=== PATIENT | female | born 1985 | race Caucasian/White ===

== ENCOUNTER 2016-08-28 17:46 | Emergency (ER) | payer OTHER ==
[2016-08-28] MEDS ORDERED: NORCO 5/325 MG PO ONE (19:19)
[2016-08-28] MEDS ORDERED: PHENERGAN 25 MG PO ONE (19:20)
[2016-08-28] MEDS ORDERED: PHENERGAN 25 MG ONE (19:24)
[2016-08-28] MEDS ORDERED: NORCO 5/325 MG ONE (19:26)
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
[2016-08-28 20:18] LABS: ALBUMIN 3.9 g/dL (3.4-5.0); ALKALINE PHOSPHATASE 83 U/L (46-116); ANION GAP 13.6 MEQ/L (5-15); BILIRUBIN,TOTAL 0.2 mg/dL (0.2-1.0); BLOOD UREA NITROGEN 8 mg/dL (9-20); CHLORIDE 107 mEq/L (98-107); Carbon Dioxide 21.4 mEq/L (21-32); Glucose 108 MG/DL (70-110); LIPASE 103 U/L (73-393); Potassium 3.6 mEq/L (3.5-5.1); SGOT/AST 33 U/L (15-37); SGPT/ALT 40 U/L (12-78); SODIUM 138 mEq/L (136-145); Total Protein 7.1 gm/dL (6.4-8.2)
[2016-08-28 20:19] LABS: BASOPHIL % 0.1 % (0.0-0.4); Eosinophil % 1.3 % (0.00-5.0); Granulocytes % 67.2 % (36.0-66.0); Lymphocytes % 24.4 % (24.0-44.0); Mean Cell Volume 89.6 fl (78-100); Mean Corpuscular Hemoglobin 29.4 pg (26-32); Mean Platelet Volume 10.6 fl (6-9.5); Platelet Count 260 K/mm3 (150-450); Red Blood Count 4.69 M/mm3 (4.1-5.4); Red Cell Distribution Width 13.6 % (11.5-14.0); White Blood Count 16.1 K/mm3 (4.0-10.5)
[2016-08-28 20:31] LABS: Collection Type CCMS
[2016-08-28 20:32] LABS: COMPLETE URINE MICROSCOPIC? NO
[2016-08-28 21:02] VITALS: BP 114/68; PULSE 69
[2016-08-28 21:18] VITALS: O2SAT 97
[2016-08-28] MEDS ORDERED: Cyclobenzaprine 10 MG PO ONE (21:20)
[2016-08-28] MEDS ORDERED: Cyclobenzaprine 10 MG ONE (21:24)
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
== END 2016-08-28 21:41 | disposition home or self-care (01) ==
LOC: ED 17:46
DX: R51 Headache (principal); S16.1XXA Strain of muscle, fascia and tendon at neck level, initial encounter; S60.222A Contusion of left hand, initial encounter; G40.909 Epilepsy, unspecified, not intractable, without status epilepticus; M54.2 Cervicalgia; M79.642 Pain in left hand; R11.0 Nausea; V53.5XXA Driver of pick-up truck or van injured in collision with car, pick-up truck or van in traffic accident, initial encounter; V57.5XXA Driver of pick-up truck or van injured in collision with fixed or stationary object in traffic accident, initial encounter
CPT/HCPCS: 36415; 70450; 72125; 73130; 80053; 80307; 81002; 82150; 83690; 84703; 85025; 99283; 99284; L0120; A9270-GY

== ENCOUNTER 2016-12-13 00:48 | Emergency (ER) | payer OTHER ==
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
[2016-12-13 01:06] VITALS: O2SAT 98
[2016-12-13 01:12] LABS: BASOPHIL % 0.2 % (0.0-0.4); Eosinophil % 2.3 % (0.00-5.0); Granulocytes % 56.1 % (36.0-66.0); Mean Corpuscular Hemoglobin 29.7 pg (26-32); Mean Platelet Volume 10.4 fl (6-9.5); Monocytes % 8.4 % (0.0-12.0); Platelet Count 243 K/mm3 (150-450); Red Blood Count 4.35 M/mm3 (4.1-5.4); Red Cell Distribution Width 13.6 % (11.5-14.0)
[2016-12-13 01:33] LABS: ANION GAP 11.6 MEQ/L (5-15); BLOOD UREA NITROGEN 11 mg/dL (9-20); CHLORIDE 110 mEq/L (98-107); Carbon Dioxide 22.1 mEq/L (21-32); Glucose 92 MG/DL (70-110); Potassium 3.6 mEq/L (3.5-5.1); SODIUM 140 mEq/L (136-145)
[2016-12-13] MEDS ORDERED: MOTRIN 600 MG PO ONE (01:45)
[2016-12-13] MEDS ORDERED: Ativan 2 MG/1 ML VIAL IM ONE (01:46)
[2016-12-13] MEDS ORDERED: Ativan 1 MG ONE (01:46)
[2016-12-13] MEDS ORDERED: MOTRIN 600 MG ONE (01:46)
[2016-12-13] MEDS ORDERED: Ativan 2 MG/1 ML VIAL ONE (01:48)
[2016-12-13 02:29] VITALS: BP 100/58; PULSE 72
== END 2016-12-13 02:28 | disposition home or self-care (01) ==
LOC: ED 00:48
DX: R56.9 Unspecified convulsions (principal); G40.909 Epilepsy, unspecified, not intractable, without status epilepticus
CPT/HCPCS: 36415; 80048; 82962; 84703; 85025; 96372; 99284; J2060; A9270-GY

== ENCOUNTER 2017-04-12 01:02 | Emergency (ER) | payer OTHER ==
[2017-04-12] MEDS ORDERED: Sodium Chloride 0.9% 1000 ML 1,000 ML IV STA (01:25)
[2017-04-12] MEDS ORDERED: Sodium Chloride 0.9% 1000 ML 1,000 ML ONE (01:38)
[2017-04-12 01:41] LABS: BASOPHIL % 0.3 % (0.0-0.4); Collection Type VOID; Eosinophil % 2.4 % (0.00-5.0); Granulocytes % 47.9 % (36.0-66.0); Lymphocytes % 39.1 % (24.0-44.0); Mean Cell Volume 89.9 fl (78-100); Mean Corpuscular Hemoglobin 29.6 pg (26-32); Mean Platelet Volume 9.7 fl (6-9.5); Monocytes % 10.3 % (0.0-12.0); Platelet Count 267 K/mm3 (150-450); Red Blood Count 4.25 M/mm3 (4.1-5.4); White Blood Count 11.5 K/mm3 (4.0-10.5)
[2017-04-12 01:42] LABS: ADD URINE CULTURE? NO (NO); Bilirubin NEGATIVE (NEGATIVE); Blood NEGATIVE Ery/ul (0-5); COMPLETE URINE MICROSCOPIC? NO; Glucose NEGATIVE (NEGATIVE); Leukocyte Esterase NEGATIVE (NEGATIVE)
[2017-04-12] MEDS ORDERED: TORAdol 30 mg Injection IV ONE (01:57)
[2017-04-12] MEDS ORDERED: BENADRYL 50 MG/ML IV ONE (01:57)
[2017-04-12] MEDS ORDERED: BENADRYL 50 MG/ML ONE (01:59)
[2017-04-12] MEDS ORDERED: TORAdol 30 mg Injection ONE (01:59)
[2017-04-12 02:00] LABS: ALBUMIN 3.2 g/dL (3.4-5.0); ALKALINE PHOSPHATASE 77 U/L (46-116); ANION GAP 17.2 MEQ/L (5-15); BLOOD UREA NITROGEN 14 mg/dL (9-20); CHLORIDE 107 mEq/L (98-107); Carbon Dioxide 22.7 mEq/L (21-32); Glucose 87 MG/DL (70-110); LIPASE 127 U/L (73-393); Potassium 3.6 mEq/L (3.5-5.1); SGOT/AST 15 U/L (15-37); SGPT/ALT 25 U/L (12-78); SODIUM 143 mEq/L (136-145); Total Protein 6.6 gm/dL (6.4-8.2)
[2017-04-12 02:01] LABS: Bacteria Rare; Clue Cells None Seen; Trichomonas None Seen; Yeast None Seen
[2017-04-12] MEDS ORDERED: Hydromorphone 1 mg/ml Ampule IV ONE (02:30)
[2017-04-12] MEDS ORDERED: Hydromorphone 1 mg/ml Ampule ONE (02:31)
--- NOTE | 2017-04-12 02:52 | ERPHSYRPT ---
- History of Present Illness Time Seen by Provider: 04/12/17 01:21 Source: patient Patient Subjective Stated Complaint: pt states pain started about 1 week ago. states pain will get better, then worse again. pt c/o pelvic pain worse on the right and lower back pain. Triage Nursing Assessment: pt alert and oriented, answers questions approp. pt ambulatory with steady gait noted. respirations nonlabored withlungs cta. bowel sounds present in all 4 quads. bilat lower ext strength wnl , cap refill and sensation wnl. Physician History: CC: right back and pelvic pain Hx: 31 y/o patient of Dr Fuentes with hx of seizure disorder. She has 2 week hx of right low back pain and right pelvic pain. Clear vaginal discharge. No fever or chills. Normal urination. She had prior BTL. Took neg preg test. Pain is sharp and moderate. Worse with intercourse. Timing/Duration: week(s) (2) Severity: moderate Allergies/Adverse Reactions: codeine [Codeine] Allergy (Verified 12/13/16 00:55) ITCHY, RASH morphine Allergy (Verified 12/13/16 00:55) Rash sulfamethoxazole [From Bactrim] Allergy (Verified 12/13/16 00:55) trimethoprim [From Bactrim] Allergy (Verified 12/13/16 00:55) cephalexin monohydrate [From Keflex] Adverse Reaction (Verified 12/13/16 00:55) Vomiting Cephalosporins Adverse Reaction (Verified 12/13/16 00:55) Vomiting Home Medications: Lamotrigine 100 mg [lamICTAL 100MG TABLET] 100 mg PO BID 09/23/12 [History ] Topiramate 100 mg [Topamax 100 MG] 300 mg PO HS 09/23/12 [History] Cyclobenzaprine HCl [Flexeril] 5 mg PO HS 04/12/17 [History] Divalproex Sodium [Depakote] 500 mg PO BID 04/12/17 [History] Hx Tetanus, Diphtheria Vaccination/Date Given: Yes (2015) Hx Influenza Vaccination/Date Given: No Hx Pneumococcal Vaccination/Date Given: No Immunizations Up to Date: Yes - Review of Systems Constitutional: No Fever, No Chills Eyes: No Symptoms Ears, Nose, & Throat: No Symptoms Respiratory: No Cough Cardiac: No Chest Pain Abdominal/Gastrointestinal: Abdominal Pain, No Nausea, No Vomiting, No Diarrhea Genitourinary Symptoms: Vaginal Discharge (clear), No Dysuria, No Musculoskeletal: Back Pain (right) Neurological: No Focal Weakness, No Parasthesia All Other Systems: Reviewed and Negative - Past Medical History Pertinent Past Medical History: Yes Neurological History: Epilepsy ENT History: No Pertinent History Cardiac History: No Pertinent History Respiratory History: No Pertinent History Endocrine Medical History: No Pertinent History Musculoskeletal History: No Pertinent History GI Medical History: No Pertinent History History: No Pertinent History Psycho-Social History: No Pertinent History Female Reproductive Disorders: No Pertinent History Other Medical History: kidney stones - Past Surgical History Past Surgical History: Yes Neuro Surgical History: No Pertinent History Cardiac: No Pertinent History Respiratory: No Pertinent History Gastrointestinal: No Pertinent History Genitourinary: No Pertinent History Musculoskeletal: Orthopedic Surgery Female Surgical History: Section, Tubal Ligation Other Surgical History: LEFT WRIST, T & A. - Social History Smoking Status: Current every day smoker How long have you smoked: 20 Exposure to second hand smoke: Yes Alcohol Use: None Drug Use: none Patient Lives Alone: No Significant Family History: no pertinent family hx - Female History Hx Last Menstrual Period: 02/21/17 Hx Now: No - Nursing Vital Signs Nursing Vital Signs: Initial Vital Signs Temperature 97.8 F 04/12/17 01:05 Pulse Rate 99 H 04/12/17 01:05 Respiratory Rate 20 04/12/17 01:05 Blood Pressure 125/77 04/12/17 01:05 O2 Sat by Pulse Oximetry 96 04/12/17 01:05 Pain Scale Pain Intensity [Lower Back] 8 Pain Intensity 7 - Physical Exam General Appearance: alert Eye Exam: PERRL/EOMI Ears, Nose, Throat Exam: normal ENT inspection, moist mucous membranes Neck Exam: normal inspection, non-tender, supple Respiratory Exam: normal breath sounds Cardiovascular Exam: regular rate/rhythm Gastrointestinal/Abdomen Exam: soft, No tenderness, No distention, No mass, No guarding Pelvic Exam: normal external exam, cervical motion tenderness, uterine tenderness, vaginal discharge (clear), No adnexal mass Back Exam: normal inspection Extremity Exam: normal inspection, normal range of motion Neurologic Exam: alert, oriented x 3, cooperative, marking stitcher II-XII nml as tested, sensation nml, No motor deficits Skin Exam: warm, dry, No rash SpO2 Interpretation: normal SpO2: 98 Oxygen Delivery: Room Air - Course Nursing assessment & vital signs reviewed: Yes - CT Exams abd/pelvis CT Interpretation: Tele-radiologist Report (3.4cm left ovarian cyst, nonobstructing 2.2 mm left renal calculi) Ordered Tests: Active Orders 24 hr Category Date Time Status IV Insertion STAT Care 04/12/17 01:25 Active Pelvic Exam Assist STAT Care 04/12/17 01:39 Active ABDOMEN AND PELVIS W/0 CONTRAS [CT] Stat Exams 04/12/17 01:58 Taken CBC W DIFF Stat Lab 04/12/17 01:36 Completed CMP Stat Lab 04/12/17 01:36 Completed HCG QUALITATIVE,SERUM Stat Lab 04/12/17 01:36 Completed LIPASE Stat Lab 04/12/17 01:36 Completed UA W/RFX UR CULTURE Stat Lab 04/12/17 01:36 Completed Wet Prep Stat Lab 04/12/17 01:54 Completed Medication Summary Discontinued Medications Generic Name Dose Route Start Last Admin Trade Name Joseq PRN Reason Stop Dose Admin Diphenhydramine HCl 25 mg 04/12/17 01:57 04/12/17 02:01 Benadryl 50 Mg/Ml IV 04/12/17 01:58 25 mg STAT ONE Administration Diphenhydramine HCl Confirm 04/12/17 01:59 Benadryl 50 Mg/Ml Administered 04/12/17 02:00 Dose 50 mg .ROUTE .STK-MED ONE Hydromorphone HCl 1 mg 04/12/17 02:30 04/12/17 02:33 Hydromorphone 1 Mg/Ml Ampule IV 04/12/17 02:31 1 mg STAT ONE Administration Hydromorphone HCl Confirm 04/12/17 02:31 Hydromorphone 1 Mg/Ml Ampule Administered 04/12/17 02:32 Dose 1 mg .ROUTE .STK-MED ONE Sodium Chloride 1,000 mls @ 999 mls/hr 04/12/17 01:25 04/12/17 01:52 Sodium Chloride 0.9% 1000 Ml IV 04/12/17 02:25 999 mls/hr .Q1H1M STA Administration Sodium Chloride Confirm 04/12/17 01:38 Sodium Chloride 0.9% 1000 Ml Administered 04/12/17 01:39 Dose 1,000 mls @ ud .ROUTE .[facility] ONE Ketorolac Tromethamine 30 mg 04/12/17 01:57 04/12/17 02:00 Toradol 30 Mg Injection IV 04/12/17 01:58 30 mg STAT ONE Administration Ketorolac Tromethamine Confirm 04/12/17 01:59 Toradol 30 Mg Injection Administered 04/12/17 02:00 Dose 30 mg .ROUTE .[facility] Lab/Rad Data: Laboratory Result Diagrams 04/12/17 01:36 04/12/17 01:36 Laboratory Results 04/12/17 04/12/17 04/12/17 Range/Units 01:54 01:36 01:36 WBC (4.0-10.5) K/mm3 RBC (4.1-5.4) M/mm3 Hgb (12.0-16.0) gm/dl Hct (35-47) % MCV (78-100) fl MCH (26-32) pg MCHC (32-36) g/dl RDW (11.5-14.0) % Plt Count (150-450) K/mm3 MPV (6-9.5) fl Gran % (36.0-66.0) % Lymphocytes % (24.0-44.0) % Monocytes % (0.0-12.0) % Eosinophils % (0.00-5.0) % Basophils % (0.0-0.4) % Basophils # (0-0.4) Sodium 143 (136-145) mEq/L Potassium 3.6 (3.5-5.1) mEq/L Chloride 107 (98-107) mEq/L Carbon Dioxide 22.7 (21-32) mEq/L Anion Gap 17.2 H (5-15) MEQ/L BUN 14 (9-20) mg/dL Creatinine 0.85 (0.55-1.30) mg/dl Estimated GFR > 60 ML/MIN Glucose 87 (70-110) MG/DL Calcium 8.7 (8.5-10.1) mg/dL Total Bilirubin 0.20 (0.2-1.0) mg/dL AST 15 (15-37) U/L ALT 25 (12-78) U/L Alkaline Phosphatase 77 (46-116) U/L Serum Total Protein 6.6 (6.4-8.2) gm/dL Albumin 3.2 L (3.4-5.0) g/dL Lipase 127 (73-393) U/L Serum , Qual NEGATIVE (Negative) Ur Collection Type Urine Color (YELLOW) Urine Appearance (CLEAR) Urine pH (5-6) Ur Specific Viola (1.005-1.025) Urine Protein (Negative) Urine Ketones (NEGATIVE) Urine Blood (0-5) Carlos/ul Urine Nitrite (NEGATIVE) Urine Bilirubin (NEGATIVE) Urine Urobilinogen (0-1) mg/dL Ur Leukocyte Esterase (NEGATIVE) Urine Culture Reflexed (NO) Urine Glucose (NEGATIVE) mg/dL WBC (Wet Prep) Few RBC (Wet Prep) Rare Epi Cells (Wet Prep) Rare Bacteria (Wet Prep) Rare Clue Cells (Wet Prep) None Seen Trichomonas (Wet Prep) None Seen Budding Yeast (Wet Prp) None Seen Specimen Received 04/12/17 04/12/17 Range/Units 01:36 01:36 WBC 11.5 H (4.0-10.5) K/mm3 RBC 4.25 (4.1-5.4) M/mm3 Hgb 12.6 (12.0-16.0) gm/dl Hct 38.2 (35-47) % MCV 89.9 (78-100) fl MCH 29.6 (26-32) pg MCHC 33.0 (32-36) g/dl RDW 14.0 (11.5-14.0) % Plt Count 267 (150-450) K/mm3 MPV 9.7 H (6-9.5) fl Gran % 47.9 (36.0-66.0) % Lymphocytes % 39.1 (24.0-44.0) % Monocytes % 10.3 (0.0-12.0) % Eosinophils % 2.4 (0.00-5.0) % Basophils % 0.3 (0.0-0.4) % Basophils # 0.03 (0-0.4) Sodium (136-145) mEq/L Potassium (3.5-5.1) mEq/L Chloride (98-107) mEq/L Carbon Dioxide (21-32) mEq/L Anion Gap (5-15) MEQ/L BUN (9-20) mg/dL Creatinine (0.55-1.30) mg/dl Estimated GFR ML/MIN Glucose (70-110) MG/DL Calcium (8.5-10.1) mg/dL Total Bilirubin (0.2-1.0) mg/dL AST (15-37) U/L ALT (12-78) U/L Alkaline Phosphatase (46-116) U/L Serum Total Protein (6.4-8.2) gm/dL Albumin (3.4-5.0) g/dL Lipase (73-393) U/L Serum , Qual (Negative) Ur Collection Type VOID Urine Color YELLOW (YELLOW) Urine Appearance CLEAR (CLEAR) Urine pH 7.0 (5-6) Ur Specific Viola 1.015 (1.005-1.025) Urine Protein NEGATIVE (Negative) Urine Ketones NEGATIVE (NEGATIVE) Urine Blood NEGATIVE (0-5) Carlos/ul Urine Nitrite NEGATIVE (NEGATIVE) Urine Bilirubin NEGATIVE (NEGATIVE) Urine Urobilinogen NORMAL (0-1) mg/dL Ur Leukocyte Esterase NEGATIVE (NEGATIVE) Urine Culture Reflexed NO (NO) Urine Glucose NEGATIVE (NEGATIVE) mg/dL WBC (Wet Prep) RBC (Wet Prep) Epi Cells (Wet Prep) Bacteria (Wet Prep) Clue Cells (Wet Prep) Trichomonas (Wet Prep) Budding Yeast (Wet Prp) Specimen Received 04/12/17 0140 - Progress Progress Note: 04/12/17 02:52 GC/CT pending. She has ovarian cyst. Dionley the cause of pain. Will Rx pain. Advised follow up with Dr Fuentes. Counseled pt/family regarding: lab results, diagnosis, need for follow-up, rad results - Departure Time of Disposition: 02:55 Departure Disposition: Home Clinical Impression: Pelvic pain, Ovarian cyst Condition: Stable Critical Care Time: No Referrals: TORI FUENTES [Primary Care Provider] - Instructions: Pelvic Pain, Ovarian Cyst Additional Instructions: ABDOMINAL PAIN 1. There are several different causes for abdominal pain, some of which may not be able to be identified on initial examination. 2. The important thing to remember is that bodily functions can change in a short period of time. If you notice any of the following symptoms, return to the emergency department or consult your doctor immediately: A. Worsening pain or no improvement in the next 12 hours. B. Increasing, severe abdominal pain C. Blood in stool D. Black stools E. Persistent vomiting F. Fever or chills or other symptoms Follow up next week with Dr Fuentes. Rx naproxen. Rx norco. Prescriptions: Hydrocodone Bit/Acetaminophen [Morton 5-325 Tablet] 1 each PO Q6H PRN PRN #10 tablet PRN Reason: Pain Naproxen 500 mg [Naprosyn 500 MG] 500 mg PO BID #14 tablet
[2017-04-12 03:11] VITALS: BP 126/85; PULSE 88; O2SAT 126
[2017-04-12 03:27] LABS: CHLAMYDIA DNA NEGATIVE
--- NOTE | 2017-04-12 07:56 | XRAY ---
Indication: Right lower back and pelvic pain for one week. History kidney stones. Multiple contiguous axial images obtained through the abdomen and pelvis without contrast using renal stone protocol. Comparison: December 05, 2012. Lung bases demonstrates mild bibasilar atelectasis/scarring. Heart is not enlarged. There are 2 nonobstructing left renal microcalculi, largest measuring 2 mm. No other renal calculus or evidence for obstructive uropathy. Left ovary demonstrates 2 cysts, largest measuring 3.5 cm. Right ovary demonstrates a 2 cm cyst. No free fluid/air. Normal appendix. Noncontrasted stomach and bowel loops appear nonobstructed. Mild diffuse scattered colonic fecal debris. Gallbladder partially contracted without gallstones. Remaining liver, pancreas, spleen, adrenal glands, kidneys, ureters, bladder, uterus, and aorta appear unremarkable for noncontrast exam. Osseous structures intact. Impression: 1. New nonobstructing left renal microcalculi. 2. Bilateral ovary cysts, largest on the left. 3. Mild fecal stasis without obstruction. Comment: Preliminary interpretation was made by C. No discrepancy. CTDI 28.08
== END 2017-04-12 03:05 | disposition home or self-care (01) ==
LOC: ED 01:02
DX: R10.2 Pelvic and perineal pain (principal); N83.202 Unspecified ovarian cyst, left side
CPT/HCPCS: 36000; 36415; 74176; 80053; 81002; 83690; 84703; 85025; 87210; 87490; 87590; 96360; 96374; 96375; 99284; J1170; J1200; J1885

== ENCOUNTER 2017-05-16 23:06 | Emergency (ER) | payer OTHER ==
[2017-05-16] MEDS ORDERED: Sodium Chloride 0.9% 1000 ML 1,000 ML IV STA (23:23)
[2017-05-16] MEDS ORDERED: Sodium Chloride 0.9% 1000 ML 1,000 ML ONE (23:29)
[2017-05-16 23:34] LABS: BASOPHIL % 0.2 % (0.0-0.4); Basophil (Absolute #) 0.03 (0-0.4); Eosinophil % 1.5 % (0.00-5.0); Eosinophil (Absolute #) 0.23 (0-0.5); Granulocyte Absolute (ANC) 9.89 (1.4-6.9); Granulocytes % 64.1 % (36.0-66.0); Hematocrit 41.7 % (35-47); Hemoglobin 13.7 gm/dl (12.0-16.0); Lymphocyte (Absolute #) 4.16 (1.0-4.6); Lymphocytes % 26.9 % (24.0-44.0); Mean Cell Volume 90.3 fl (78-100); Mean Corpuscular Hemoglobin 29.7 pg (26-32); Mean Corpuscular Hgb Concent. 32.9 g/dl (32-36); Mean Platelet Volume 9.5 fl (6-9.5); Monocyte (Absolute #) 1.13 (0.0-1.3); Monocytes % 7.3 % (0.0-12.0); Platelet Count 301 K/mm3 (150-450); Red Blood Count 4.62 M/mm3 (4.1-5.4); Red Cell Distribution Width 13.4 % (11.5-14.0); White Blood Count 15.4 K/mm3 (4.0-10.5)
--- NOTE | 2017-05-16 23:36 | ERPHSYRPT ---
- History of Present Illness Time Seen by Provider: 05/16/17 23:31 Source: family Exam Limitations: no limitations Patient Subjective Stated Complaint: "Seizure" Triage Nursing Assessment: Boyfriend at the bedside states pt has been having "seizure" activity today, hx of epilepsy. Pt had "seizure" upon arrival to room , by closed eyes and would not respond to staff. Vital signs remained same as prior to episode, no shaking or rigidity noted. Pt crying in room, appears anxious, no distress noted. Physician History: Boyfriend at the bedside states pt has been having "seizure" activity today, hx of epilepsy. Pt had "seizure" upon arrival to room, by closed eyes and would not respond to staff. denies any jerky movements, patient is on seizure medications Time of Onset/Last Time Seen Normal: Boyfriend at the bedside states pt has been having "seizure" activity today Timing/Duration: today Character of Deficits: none Baseline/Normal Cognition: alert oriented x 3 Current Cognition: alert but confused Associated Symptoms: confusion Allergies/Adverse Reactions: codeine [Codeine] Allergy (Verified 12/13/16 00:55) ITCHY, RASH morphine Allergy (Verified 12/13/16 00:55) Rash sulfamethoxazole [From Bactrim] Allergy (Verified 12/13/16 00:55) trimethoprim [From Bactrim] Allergy (Verified 12/13/16 00:55) cephalexin monohydrate [From Keflex] Adverse Reaction (Verified 12/13/16 00:55) Vomiting Cephalosporins Adverse Reaction (Verified 12/13/16 00:55) Vomiting Home Medications: Lamotrigine 100 mg [lamICTAL 100MG TABLET] 100 mg PO BID 09/23/12 [History ] Topiramate 100 mg [Topamax 100 MG] 300 mg PO HS 09/23/12 [History] Cyclobenzaprine HCl [Flexeril] 5 mg PO HS 04/12/17 [History] Divalproex Sodium [Depakote] 500 mg PO BID 04/12/17 [History] Hx Tetanus, Diphtheria Vaccination/Date Given: Yes Hx Influenza Vaccination/Date Given: No Hx Pneumococcal Vaccination/Date Given: No Immunizations Up to Date: No - Review of Systems Constitutional: No Fever, No Chills Eyes: No Symptoms Ears, Nose, & Throat: No Symptoms Respiratory: No Cough, No Dyspnea Cardiac: No Chest Pain, No Edema, No Syncope Abdominal/Gastrointestinal: No Abdominal Pain, No Nausea, No Vomiting, No Diarrhea Genitourinary Symptoms: No Dysuria Musculoskeletal: No Back Pain, No Neck Pain Skin: No Rash Neurological: Headache, Seizure, No Dizziness, No Focal Weakness, No Sensory Changes Psychological: No Symptoms Endocrine: No Symptoms All Other Systems: Reviewed and Negative - Past Medical History Pertinent Past Medical History: Yes Neurological History: Epilepsy ENT History: No Pertinent History Cardiac History: No Pertinent History Respiratory History: No Pertinent History Endocrine Medical History: No Pertinent History Musculoskeletal History: No Pertinent History GI Medical History: No Pertinent History History: No Pertinent History Psycho-Social History: No Pertinent History Female Reproductive Disorders: No Pertinent History Other Medical History: kidney stones - Past Surgical History Past Surgical History: Yes Neuro Surgical History: No Pertinent History Cardiac: No Pertinent History Respiratory: No Pertinent History Gastrointestinal: No Pertinent History Genitourinary: No Pertinent History Musculoskeletal: Orthopedic Surgery Female Surgical History: Section, Tubal Ligation Other Surgical History: LEFT WRIST, T & A. - Social History Smoking Status: Current every day smoker How long have you smoked: 10 years Exposure to second hand smoke: Yes Alcohol Use: None Drug Use: none Patient Lives Alone: No Significant Family History: no pertinent family hx - Female History Hx Last Menstrual Period: 02/21/2017 Hx Now: No - Nursing Vital Signs Nursing Vital Signs: Initial Vital Signs Temperature 98.1 F 05/16/17 23:15 Pulse Rate 97 H 05/16/17 23:15 Respiratory Rate 18 05/16/17 23:15 Blood Pressure 136/104 05/16/17 23:15 O2 Sat by Pulse Oximetry 98 05/16/17 23:15 Pain Scale Pain Intensity 6 - Ryan Coma Scale Best Eye Response (Ryan): (4) open spontaneously Best Verbal Response ([place]): (5) oriented Best Motor Response (Ryan): (6) obeys commands [place] Total: 15 - Physical Exam General Appearance: no apparent distress, alert Eye Exam: bilateral eye: PERRL, EOMI Ears, Nose, Throat Exam: normal ENT inspection, moist mucous membranes Neck Exam: normal inspection, non-tender, supple Respiratory: normal breath sounds, lungs clear, airway intact, No respiratory distress Cardiovascular: regular rate/rhythm, No edema Gastrointestinal: soft, No tenderness, No distention Back Exam: normal inspection Extremity Exam: normal inspection, No pedal edema Mental Status: alert, lethargy bar staff Exam: normal speech, PERRL, tongue midline Motor/Sensory: no motor deficit Skin Exam: normal color, warm, dry, No rash SpO2 Interpretation: normal SpO2: 98 Oxygen Delivery: Room Air - CT Exams Head CT Interpretation: Tele-radiologist Report, No/Intracranial Hemorrhag Ordered Tests: Active Orders 24 hr Category Date Time Status HEAD WITHOUT CONTRAST [CT] Stat Exams 05/16/17 23:24 Taken CBC W DIFF Stat Lab 05/16/17 23:25 Completed CMP Stat Lab 05/16/17 23:25 Completed HCG QUALITATIVE,SERUM Stat Lab 05/16/17 23:25 Completed Lactic Acid Stat Lab 05/16/17 23:23 Ordered UA W/RFX UR CULTURE Stat Lab 05/16/17 23:23 Ordered Urine Triage Profile Stat Lab 05/16/17 23:23 Completed Medication Summary Discontinued Medications Generic Name Dose Route Start Last Admin Trade Name Maikol PRN Reason Stop Dose Admin Sodium Chloride 1,000 mls @ 999 mls/hr 05/16/17 23:23 05/16/17 23:30 Sodium Chloride 0.9% 1000 Ml IV 05/17/17 00:23 999 mls/hr .Q1H1M STA Administration Sodium Chloride Confirm 05/16/17 23:29 Sodium Chloride 0.9% 1000 Ml Administered 05/16/17 23:30 Dose 1,000 mls @ ud .ROUTE .STK-MED ONE Lab/Rad Data: Laboratory Result Diagrams 05/16/17 23:25 05/16/17 23:25 Laboratory Results 05/16/17 05/16/17 05/16/17 Range/Units 23:25 23:25 23:25 WBC 15.4 H (4.0-10.5) K/mm3 RBC 4.62 (4.1-5.4) M/mm3 Hgb 13.7 (12.0-16.0) gm/dl Hct 41.7 (35-47) % MCV 90.3 (78-100) fl MCH 29.7 (26-32) pg MCHC 32.9 (32-36) g/dl RDW 13.4 (11.5-14.0) % Plt Count 301 (150-450) K/mm3 MPV 9.5 (6-9.5) fl Gran % 64.1 (36.0-66.0) % Lymphocytes % 26.9 (24.0-44.0) % Monocytes % 7.3 (0.0-12.0) % Eosinophils % 1.5 (0.00-5.0) % Basophils % 0.2 (0.0-0.4) % Basophils # 0.03 (0-0.4) Sodium 141 (136-145) mEq/L Potassium 4.2 (3.5-5.1) mEq/L Chloride 107 (98-107) mEq/L Carbon Dioxide 21.4 (21-32) mEq/L Anion Gap 16.3 H (5-15) MEQ/L BUN 7 L (9-20) mg/dL Creatinine 0.82 (0.55-1.30) mg/dl Estimated GFR > 60 ML/MIN Glucose 91 (70-110) MG/DL Calcium 8.5 (8.5-10.1) mg/dL Total Bilirubin 0.20 (0.2-1.0) mg/dL AST 19 (15-37) U/L ALT 20 (12-78) U/L Alkaline Phosphatase 82 (46-116) U/L Serum Total Protein 6.8 (6.4-8.2) gm/dL Albumin 3.5 (3.4-5.0) g/dL Serum , Qual NEGATIVE (Negative) Urine Opiates Level (NEGATIVE) Ur Methadone (NEGATIVE) Urine Barbiturates (NEGATIVE) Ur Phencyclidine (PCP) (NEGATIVE) Urine Amphetamine (NEGATIVE) U Benzodiazepine Level (NEGATIVE) Urine Cocaine (NEGATIVE) Urine Marijuana (THC) (NEGATIVE) 05/16/17 Range/Units 23:23 WBC (4.0-10.5) K/mm3 RBC (4.1-5.4) M/mm3 Hgb (12.0-16.0) gm/dl Hct (35-47) % MCV (78-100) fl MCH (26-32) pg MCHC (32-36) g/dl RDW (11.5-14.0) % Plt Count (150-450) K/mm3 MPV (6-9.5) fl Gran % (36.0-66.0) % Lymphocytes % (24.0-44.0) % Monocytes % (0.0-12.0) % Eosinophils % (0.00-5.0) % Basophils % (0.0-0.4) % Basophils # (0-0.4) Sodium (136-145) mEq/L Potassium (3.5-5.1) mEq/L Chloride (98-107) mEq/L Carbon Dioxide (21-32) mEq/L Anion Gap (5-15) MEQ/L BUN (9-20) mg/dL Creatinine (0.55-1.30) mg/dl Estimated GFR ML/MIN Glucose (70-110) MG/DL Calcium (8.5-10.1) mg/dL Total Bilirubin (0.2-1.0) mg/dL AST (15-37) U/L ALT (12-78) U/L Alkaline Phosphatase (46-116) U/L Serum Total Protein (6.4-8.2) gm/dL Albumin (3.4-5.0) g/dL Serum , Qual (Negative) Urine Opiates Level NEG. (NEGATIVE) Ur Methadone NEG. (NEGATIVE) Urine Barbiturates NEG. (NEGATIVE) Ur Phencyclidine (PCP) NEG. (NEGATIVE) Urine Amphetamine NEG. (NEGATIVE) U Benzodiazepine Level NEG. (NEGATIVE) Urine Cocaine NEG. (NEGATIVE) Urine Marijuana (THC) NEG. (NEGATIVE) - Progress Progress: improved Counseled pt/family regarding: lab results, diagnosis, need for follow-up, rad results - Departure Time of Disposition: 00:40 Departure Disposition: Home Clinical Impression: Seizure Qualifiers: Convulsion type: unspecified Qualified Code(s): R56.9 - Unspecified convulsions Condition: Stable Critical Care Time: Yes Critical Care Time(excluding separately billable procedures): 30-74 minutes Referrals: TORI SOUTH [Primary Care Provider] - Instructions: Seizure Disorder -- Adult Additional Instructions: increase lamictal 150 mg orally twice a day Please follow the instructions given to you. Please take your medication as prescribed if given. If symptoms recur or get worse, come back to the emergency room if you cannot reach your primary care physician, or call your primary care physician for an appointment. Again if your symptoms get worse, come back to the emergency room. Thanks for visiting emergency room, and let us take care of you.
[2017-05-16 23:59] LABS: ALBUMIN 3.5 g/dL (3.4-5.0); ALKALINE PHOSPHATASE 82 U/L (46-116); ANION GAP 16.3 MEQ/L (5-15); BLOOD UREA NITROGEN 7 mg/dL (9-20); CHLORIDE 107 mEq/L (98-107); Calcium 8.5 mg/dL (8.5-10.1); Carbon Dioxide 21.4 mEq/L (21-32); Creatinine 1 0.82 mg/dl (0.55-1.30); EST GLOMERULAR FILTRATION RATE > 60 ML/MIN; Glucose 91 MG/DL (70-110); Potassium 4.2 mEq/L (3.5-5.1); SGOT/AST 19 U/L (15-37); SGPT/ALT 20 U/L (12-78); SODIUM 141 mEq/L (136-145); Total Protein 6.8 gm/dL (6.4-8.2)
[2017-05-17 00:09] LABS: Amphetamine,Urine NEG. (NEGATIVE); Barbiturate,Urine NEG. (NEGATIVE); Benzodiazepine,Urine NEG. (NEGATIVE); Cocaine,Urine NEG. (NEGATIVE); Methadone,Urine NEG. (NEGATIVE); Opiate,Urine NEG. (NEGATIVE); PCP,Urine NEG. (NEGATIVE); THC,Urine NEG. (NEGATIVE)
[2017-05-17 00:48] VITALS: BP 127/78; PULSE 84; O2SAT 97
[2017-05-17 01:14] LABS: Appearance CLEAR (CLEAR)
[2017-05-17 01:15] LABS: Bilirubin NEGATIVE (NEGATIVE); Blood NEGATIVE Ery/ul (0-5); Glucose NEGATIVE (NEGATIVE); Ketones NEGATIVE (NEGATIVE); Leukocyte Esterase NEGATIVE (NEGATIVE); Nitrite NEGATIVE (NEGATIVE); Protein,Urine Dip NEGATIVE (Negative); Urobilinogen NORMAL mg/dL (0-1)
--- NOTE | 2017-05-17 10:36 | XRAY ---
Indication: Seizure. Multiple contiguous axial images obtained through the head without contrast. Comparison: August 28, 2016. Again normal appearing brain parenchyma, ventricles, and bony calvarium. Visualized paranasal sinuses and mastoid air cells are clear. Impression: Stable normal CT head without contrast exam. Comment: Preliminary interpretation was made by [facility]. No discrepancy. CTDI 70.00
== END 2017-05-17 01:12 | disposition home or self-care (01) ==
LOC: ED 23:06
DX: R56.9 Unspecified convulsions (principal)
CPT/HCPCS: 36000; 36415; 70450; 80053; 80307; 81002; 84146; 84703; 85025; 96360; 99284

== ENCOUNTER 2017-06-25 19:06 | Emergency (ER) | payer OTHER ==
[2017-06-25] MEDS ORDERED: NORCO 5/325 MG PO ONE (20:29)
[2017-06-25] MEDS ORDERED: Sodium Chloride 0.9% 1000 ML 1,000 ML IV SCH (20:30)
--- NOTE | 2017-06-25 20:33 | ERPHSYRPT ---
- History of Present Illness Time Seen by Provider: 06/25/17 20:24 Source: patient Exam Limitations: no limitations Patient Subjective Stated Complaint: Seizure Activity Triage Nursing Assessment: Pt presents to the ED with complaints of seizure activity prior to arrival. Pt states she is about to begin menstrual cycle and that she normally has seizure activity just prior to menstrual cycle. No distress noted, skin PWD. Pt and family unable to described seizure activity. Physician History: 31-year-old white female with history of epilepsy, kidney stones, patient states she often gets seizures prior to her menstrual period, Patient brought in by her boyfriend with complaint of multiple seizures up to 30 and 1 hour just prior to arrival. Boyfriend is unable to describe the seizures he does state the past that she's, later head back and her arms have shaken in the past. Patient currently alert oriented in no acute distress. Past medical history includes epilepsy, kidney stones. Past surgical history includes , tubal ligation, orthopedic surgery left wrist, tonsillectomy and adenoidectomy. Social history positive for tobacco use. Timing/Duration: today (at about 5:30 lasting one hour.) Severity: moderate Modifying Factors: Improves With: nothing Associated Symptoms: seizure, No nausea, No vomiting, No abdominal pain, No shortness of breath, No heartburn, No diaphoresis, No cough, No chills, No chest pain, No fever, No headaches, No loss of appetite, No malaise, No rash, No syncope Allergies/Adverse Reactions: codeine [Codeine] Allergy (Verified 06/25/17 21:27) ITCHY, RASH morphine Allergy (Verified 06/25/17 21:27) Rash sulfamethoxazole [From Bactrim] Allergy (Verified 06/25/17 21:27) trimethoprim [From Bactrim] Allergy (Verified 06/25/17 21:27) cephalexin monohydrate [From Keflex] Adverse Reaction (Verified 06/25/17 21:27) Vomiting Cephalosporins Adverse Reaction (Verified 06/25/17 21:27) Vomiting Home Medications: Lamotrigine 100 mg [lamICTAL 100MG TABLET] 100 mg PO BID 09/23/12 [History ] Topiramate 100 mg [Topamax 100 MG] 300 mg PO HS 09/23/12 [History] Cyclobenzaprine HCl [Flexeril] 5 mg PO HS 04/12/17 [History] Divalproex Sodium [Depakote] 500 mg PO BID 04/12/17 [History] Naproxen 500 mg [Naprosyn 500 MG] 500 mg PO BID PRN 06/25/17 [History] Omeprazole 20 MG [Prilosec 20 mg] 20 mg PO DAILY 06/25/17 [History] Hx Tetanus, Diphtheria Vaccination/Date Given: Yes Hx Influenza Vaccination/Date Given: No Hx Pneumococcal Vaccination/Date Given: No Immunizations Up to Date: No - Review of Systems Constitutional: No Fever, No Chills Eyes: No Symptoms Ears, Nose, & Throat: No Symptoms Respiratory: No Cough, No Dyspnea Cardiac: No Chest Pain, No Edema, No Syncope Abdominal/Gastrointestinal: No Abdominal Pain, No Nausea, No Vomiting, No Diarrhea Genitourinary Symptoms: No Dysuria Musculoskeletal: No Back Pain, No Neck Pain Skin: No Rash Neurological: Headache, Seizure, No Dizziness, No Focal Weakness, No Gait Changes, No Irritability, No Lethargy, No Paralysis, No Parasthesia, No Sensory Changes, No Speech Changes, No Tics, No Tremors, No Vertigo Psychological: No Symptoms Endocrine: No Symptoms All Other Systems: Reviewed and Negative - Past Medical History Pertinent Past Medical History: Yes Neurological History: Epilepsy ENT History: No Pertinent History Cardiac History: No Pertinent History Respiratory History: No Pertinent History Endocrine Medical History: No Pertinent History Musculoskeletal History: No Pertinent History GI Medical History: No Pertinent History History: No Pertinent History Psycho-Social History: No Pertinent History Female Reproductive Disorders: No Pertinent History Other Medical History: kidney stones - Past Surgical History Past Surgical History: Yes Neuro Surgical History: No Pertinent History Cardiac: No Pertinent History Respiratory: No Pertinent History Gastrointestinal: No Pertinent History Genitourinary: No Pertinent History Musculoskeletal: Orthopedic Surgery Female Surgical History: Section, Tubal Ligation Other Surgical History: LEFT WRIST, T & A. - Social History Smoking Status: Current every day smoker How long have you smoked: 14 years Exposure to second hand smoke: Yes Alcohol Use: None Drug Use: none Patient Lives Alone: No Significant Family History: no pertinent family hx - Female History Hx Last Menstrual Period: 05/26/2017 Hx Now: No - Nursing Vital Signs Nursing Vital Signs: Initial Vital Signs Temperature 98.4 F 06/25/17 19:33 Pulse Rate 78 06/25/17 19:33 Respiratory Rate 16 06/25/17 19:33 Blood Pressure 112/66 06/25/17 19:33 O2 Sat by Pulse Oximetry 96 06/25/17 19:33 Pain Scale Pain Intensity 5 - Physical Exam General Appearance: no apparent distress, alert Eye Exam: PERRL/EOMI, eyes nml inspection Ears, Nose, Throat Exam: normal ENT inspection, TMs normal, pharynx normal, moist mucous membranes Neck Exam: normal inspection, non-tender, supple, full range of motion Respiratory Exam: normal breath sounds, lungs clear, No respiratory distress Cardiovascular Exam: regular rate/rhythm, normal heart sounds, normal peripheral pulses Gastrointestinal/Abdomen Exam: soft, normal bowel sounds, No tenderness, No mass Back Exam: normal inspection, normal range of motion, No CVA tenderness, No vertebral tenderness Extremity Exam: normal inspection, normal range of motion, pelvis stable Neurologic Exam: alert, oriented x 3, cooperative, normal mood/affect, nml cerebellar function, nml station & gait, sensation nml, No motor deficits Skin Exam: normal color, warm, dry, No rash Lymphatic Exam: No adenopathy SpO2 Interpretation: normal (96%) SpO2: 96 Oxygen Delivery: Room Air Ordered Tests: Active Orders 24 hr Category Date Time Status Accucheck STAT Care 06/25/17 20:27 Active IV Insertion STAT Care 06/25/17 20:27 Active CBC W DIFF Stat Lab 06/25/17 20:41 Completed CMP Stat Lab 06/25/17 20:41 Completed HCG QUALITATIVE,SERUM Stat Lab 06/25/17 20:41 Completed UA W/RFX UR CULTURE Stat Lab 06/25/17 20:55 Completed Urine Triage Profile Stat Lab 06/25/17 20:55 Completed VALPROIC ACID (DE[place]KOTE) Stat Lab 06/25/17 20:41 Completed Medication Summary Generic Name Dose Route Start Last Admin Trade Name Freq PRN Reason Stop Dose Admin Sodium Chloride 1,000 mls @ 100 mls/hr 06/25/17 20:30 06/25/17 20:42 Sodium Chloride 0.9% 1000 Ml IV 07/25/17 20:29 100 mls/hr .Q10H ANEUDY Administration Discontinued Medications Generic Name Dose Route Start Last Admin Trade Name Freq PRN Reason Stop Dose Admin Hydrocodone Bitart/Acetaminophen 1 tab 06/25/17 20:29 06/25/17 20:41 [place] 5/325 Mg PO 06/25/17 20:30 1 tab STAT ONE Administration Hydrocodone Bitart/Acetaminophen Confirm 06/25/17 20:41 [place] 5/325 Mg Administered 06/25/17 20:42 Dose 1 tab .ROUTE .STK-MED ONE Divalproex Sodium 500 mg 06/25/17 21:40 06/25/17 22:[address] 250 Mg Tab PO 06/25/17 21:41 500 mg STAT ONE Administration Lorazepam 1 mg 06/25/17 21:37 06/25/17 21:54 Ativan 2 Mg/1 Ml Vial IV 06/25/17 21:38 1 mg STAT ONE Administration Lorazepam Confirm 06/25/17 21:52 Ativan 2 Mg/1 Ml Vial Administered 06/25/17 21:53 Dose 2 mg .ROUTE .STK-MED ONE Lab/Rad Data: Laboratory Result Diagrams 06/25/17 20:41 06/25/17 20:41 Laboratory Results 06/25/17 06/25/17 06/25/17 Range/Units 20:55 20:55 20:41 WBC (4.0-10.5) K/mm3 RBC (4.1-5.4) M/mm3 Hgb (12.0-16.0) gm/dl Hct (35-47) % MCV (78-100) fl MCH (26-32) pg MCHC (32-36) g/dl RDW (11.5-14.0) % Plt Count (150-450) K/mm3 MPV (6-9.5) fl Gran % (36.0-66.0) % Lymphocytes % (24.0-44.0) % Monocytes % (0.0-12.0) % Eosinophils % (0.00-5.0) % Basophils % (0.0-0.4) % Basophils # (0-0.4) Sodium (136-145) mEq/L Potassium (3.5-5.1) mEq/L Chloride (98-107) mEq/L Carbon Dioxide (21-32) mEq/L Anion Gap (5-15) MEQ/L BUN (9-20) mg/dL Creatinine (0.55-1.30) mg/dl Estimated GFR ML/MIN Glucose (70-110) MG/DL Calcium (8.5-10.1) mg/dL Total Bilirubin (0.2-1.0) mg/dL AST (15-37) U/L ALT (12-78) U/L Alkaline Phosphatase (46-116) U/L Serum Total Protein (6.4-8.2) gm/dL Albumin (3.4-5.0) g/dL Serum , Qual NEGATIVE (Negative) Ur Collection Type VOID Urine Color YELLOW (YELLOW) Urine Appearance CLOUDY (CLEAR) Urine pH 7.0 (5-6) Ur Specific [place] 1.015 (1.005-1.025) Urine Protein NEGATIVE (Negative) Urine Ketones NEGATIVE (NEGATIVE) Urine Blood NEGATIVE (0-5) Carlos/ul Urine Nitrite NEGATIVE (NEGATIVE) Urine Bilirubin NEGATIVE (NEGATIVE) Urine Urobilinogen NORMAL (0-1) mg/dL Ur Leukocyte Esterase NEGATIVE (NEGATIVE) Urine Culture Reflexed NO (NO) Urine Glucose NEGATIVE (NEGATIVE) mg/dL Urine Opiates Level NEG. (NEGATIVE) Ur Methadone NEG. (NEGATIVE) Urine Barbiturates NEG. (NEGATIVE) Valproic Acid (50-100) UG/ML Ur Phencyclidine (PCP) NEG. (NEGATIVE) Urine Amphetamine NEG. (NEGATIVE) U Benzodiazepine Level NEG. (NEGATIVE) Urine Cocaine NEG. (NEGATIVE) Urine Marijuana (THC) NEG. (NEGATIVE) Specimen Received 06/25/17205406/25/17 06/25/17 Range/Units 20:41 20:41 WBC 10.9 H (4.0-10.5) K/mm3 RBC 4.24 (4.1-5.4) M/mm3 Hgb 12.7 (12.0-16.0) gm/dl Hct 38.6 (35-47) % MCV 91.0 (78-100) fl MCH 30.0 (26-32) pg MCHC 32.9 (32-36) g/dl RDW 13.6 (11.5-14.0) % Plt Count 239 (150-450) K/mm3 MPV 10.0 H (6-9.5) fl Gran % 62.3 (36.0-66.0) % Lymphocytes % 27.4 (24.0-44.0) % Monocytes % 8.0 (0.0-12.0) % Eosinophils % 2.1 (0.00-5.0) % Basophils % 0.2 (0.0-0.4) % Basophils # 0.02 (0-0.4) Sodium 142 (136-145) mEq/L Potassium 3.8 (3.5-5.1) mEq/L Chloride 110 H (98-107) mEq/L Carbon Dioxide 24.4 (21-32) mEq/L Anion Gap 11.0 (5-15) MEQ/L BUN 11 (9-20) mg/dL Creatinine 0.82 (0.55-1.30) mg/dl Estimated GFR > 60 ML/MIN Glucose 106 (70-110) MG/DL Calcium 8.4 L (8.5-10.1) mg/dL Total Bilirubin 0.10 L (0.2-1.0) mg/dL AST 15 (15-37) U/L ALT 17 (12-78) U/L Alkaline Phosphatase 60 (46-116) U/L Serum Total Protein 6.3 L (6.4-8.2) gm/dL Albumin 3.0 L (3.4-5.0) g/dL Serum , Qual (Negative) Ur Collection Type Urine Color (YELLOW) Urine Appearance (CLEAR) Urine pH (5-6) Ur Specific [place] (1.005-1.025) Urine Protein (Negative) Urine Ketones (NEGATIVE) Urine Blood (0-5) Carlos/ul Urine Nitrite (NEGATIVE) Urine Bilirubin (NEGATIVE) Urine Urobilinogen (0-1) mg/dL Ur Leukocyte Esterase (NEGATIVE) Urine Culture Reflexed (NO) Urine Glucose (NEGATIVE) mg/dL Urine Opiates Level (NEGATIVE) Ur Methadone (NEGATIVE) Urine Barbiturates (NEGATIVE) Valproic Acid 18.0 L (50-100) UG/ML Ur Phencyclidine (PCP) (NEGATIVE) Urine Amphetamine (NEGATIVE) U Benzodiazepine Level (NEGATIVE) Urine Cocaine (NEGATIVE) Urine Marijuana (THC) (NEGATIVE) Specimen Received - Progress Progress: improved Progress Note: 06/25/17 21:33 31-year-old white female with history of seizure disorder arrives with complaint of 30 seizures and one hour prior to arrival she states these began around 5:00. Patient has not had any seizure since arrival. I have obtained CBC CMP UA urine drug screen Depakote level and Lamictal level prolactin level is pending. Patient has not had further seizure she was complaining of a headache she was given [place] 500 mg by mouth (patient is allergic to codeine and morphine but can take [place]). Patient appears to be stable at this time she did state she still had somewhat of headache. patient's Depakote level was 18 with normal being between 50 and 100. She takes valproate 500 mg orally twice a day. Patient has been started on normal saline 100 mL per hour. I've discussed the patient's case with Dr. Fuentes. Will go ahead and give patient Ativan 1 mg IV will give patient valproate 500 mg orally. Will have patient start taking valproate 1000 mg in the morning and 500 mg at night she is to continue her other medications. The patient appears to be stable and there is no problems we'll consider having her return home and follow-up with Dr. Fuentes. Alternately if there are any more problems we will just place her on observation. 06/25/17 22:27 Patient feeling better has received 1 mg of Ativan IV also valproate 500 mg orally. Will discharge with seizure precautions. Patient has had no further seizure activity. - Departure Time of Disposition: 22:28 Departure Disposition: Home Clinical Impression: Seizure Qualifiers: Convulsion type: unspecified Qualified Code(s): R56.9 - Unspecified convulsions Condition: Fair Critical Care Time: No Referrals: TORI FUENTES [Primary Care Provider] - Additional Instructions: Return home, Plenty of fluids. No heights, no hazardous activity, take showers instead of baths, no driving, do not engage in any activity which might harm you or others. Increase divalproex to 1000 mg every morning and 500 mg at night. Take your other medications as prescribed by your family doctor. Follow-up with your family doctor call tomorrow morning to arrange follow-up visit. Return for acute distress severe symptoms or problems.
[2017-06-25] MEDS ORDERED: NORCO 5/325 MG ONE (20:41)
[2017-06-25] MEDS ORDERED: Sodium Chloride 0.9% 1000 ML 1,000 ML ONE (20:41)
[2017-06-25 20:45] LABS: BASOPHIL % 0.2 % (0.0-0.4); Basophil (Absolute #) 0.02 (0-0.4); Eosinophil % 2.1 % (0.00-5.0); Eosinophil (Absolute #) 0.23 (0-0.5); Granulocyte Absolute (ANC) 6.76 (1.4-6.9); Granulocytes % 62.3 % (36.0-66.0); Hematocrit 38.6 % (35-47); Hemoglobin 12.7 gm/dl (12.0-16.0); Lymphocyte (Absolute #) 2.98 (1.0-4.6); Lymphocytes % 27.4 % (24.0-44.0); Mean Corpuscular Hgb Concent. 32.9 g/dl (32-36); Monocyte (Absolute #) 0.87 (0.0-1.3); Platelet Count 239 K/mm3 (150-450); Red Blood Count 4.24 M/mm3 (4.1-5.4); Red Cell Distribution Width 13.6 % (11.5-14.0); White Blood Count 10.9 K/mm3 (4.0-10.5)
[2017-06-25 21:02] LABS: Appearance CLOUDY (CLEAR); Bilirubin NEGATIVE (NEGATIVE); Blood NEGATIVE Ery/ul (0-5); Glucose NEGATIVE (NEGATIVE); Ketones NEGATIVE (NEGATIVE); Leukocyte Esterase NEGATIVE (NEGATIVE); Nitrite NEGATIVE (NEGATIVE); Protein,Urine Dip NEGATIVE (Negative); Specific Gravity 1.015 (1.005-1.025); Urobilinogen NORMAL mg/dL (0-1)
[2017-06-25 21:10] LABS: ALKALINE PHOSPHATASE 60 U/L (46-116); BLOOD UREA NITROGEN 11 mg/dL (9-20); CHLORIDE 110 mEq/L (98-107); Calcium 8.4 mg/dL (8.5-10.1); Carbon Dioxide 24.4 mEq/L (21-32); Creatinine 1 0.82 mg/dl (0.55-1.30); EST GLOMERULAR FILTRATION RATE > 60 ML/MIN; Glucose 106 MG/DL (70-110); Potassium 3.8 mEq/L (3.5-5.1); SGOT/AST 15 U/L (15-37); SGPT/ALT 17 U/L (12-78); SODIUM 142 mEq/L (136-145); Total Protein 6.3 gm/dL (6.4-8.2)
[2017-06-25 21:10] LABS: Amphetamine,Urine NEG. (NEGATIVE); Barbiturate,Urine NEG. (NEGATIVE); Benzodiazepine,Urine NEG. (NEGATIVE); Cocaine,Urine NEG. (NEGATIVE); Methadone,Urine NEG. (NEGATIVE); Opiate,Urine NEG. (NEGATIVE); PCP,Urine NEG. (NEGATIVE); THC,Urine NEG. (NEGATIVE)
[2017-06-25] MEDS ORDERED: Ativan 2 MG/1 ML VIAL IV ONE (21:37)
[2017-06-25] MEDS ORDERED: Ativan 2 MG/1 ML VIAL ONE (21:52)
[2017-06-25 22:42] VITALS: BP 114/79; PULSE 81; O2SAT 99
[2017-06-28 03:35] LABS: PROLACTIN 7.1 ng/mL (4.7-23.3)
== END 2017-06-25 22:42 | disposition home or self-care (01) ==
LOC: ED 19:06
DX: R56.9 Unspecified convulsions (principal); G40.909 Epilepsy, unspecified, not intractable, without status epilepticus; Z87.442 Personal history of urinary calculi; Z79.899 Other long term (current) drug therapy
CPT/HCPCS: 36000; 36415; 80053; 80164; 80175; 80307; 81002; 82962; 84146; 84703; 85025; 96360; 96361; 96374; 99284; J2060; A9270-GY

== ENCOUNTER 2018-01-31 02:56 | Emergency (ER) | payer OTHER ==
--- NOTE | 2018-01-31 03:06 | ERPHSYRPT ---
- History of Present Illness Time Seen by Provider: 01/31/18 03:04 Source: patient, family Exam Limitations: no limitations Physician History: 32 y/o white female with h/o recurrent seizures presents with another episode that occurred just [employer]. in addition, she had two other episodes last week. pt denies losing bowel or bladder control. pt denies head injury. no new medication. pt is on her menstrual period and pts seizures, if they occur, tend to occur during her menstrual period. pt underwent a ct scan head 05/17/17 which was normal. Timing/Duration: today Severity: mild Character of Deficits: none Deficits: no difficulties Baseline/Normal Cognition: alert oriented x 3 Current Cognition: alert oriented x 3 Baseline Gait: walks w/o assistance Associated Symptoms: seizures, headache, No confusion, No loss of consciousness , No nausea, No vomiting, No weakness, No insomnia, No muscle spasms, No numbness/tingling in legs/feet, No paresthesia, No ringing in ears, No slurred speech, No trouble walking, No vision changes, No chest pain Allergies/Adverse Reactions: codeine [Codeine] Allergy (Verified 01/31/18 03:16) ITCHY, RASH morphine Allergy (Verified 01/31/18 03:16) Rash sulfamethoxazole [From Bactrim] Allergy (Verified 01/31/18 03:16) trimethoprim [From Bactrim] Allergy (Verified 01/31/18 03:16) cephalexin monohydrate [From Keflex] Adverse Reaction (Verified 01/31/18 03:16) Vomiting Cephalosporins Adverse Reaction (Verified 01/31/18 03:16) Vomiting Home Medications: Lamotrigine 100 mg [lamICTAL 100MG TABLET] 100 mg PO BID 09/23/12 [History ] Topiramate 100 mg [Topamax 100 MG] 300 mg PO HS 09/23/12 [History] Cyclobenzaprine HCl [Flexeril] 5 mg PO HS 04/12/17 [History] Divalproex Sodium [Depakote] 500 mg PO BID 04/12/17 [History] Naproxen 500 mg [Naprosyn 500 MG] 500 mg PO BID PRN 06/25/17 [History] Omeprazole 20 MG [Prilosec 20 mg] 20 mg PO DAILY 06/25/17 [History] Hx Tetanus, Diphtheria Vaccination/Date Given: Yes Hx Influenza Vaccination/Date Given: No Hx Pneumococcal Vaccination/Date Given: No - Review of Systems Constitutional: No Symptoms, No Fever, No Chills Eyes: No Symptoms, No Discharge, No Eye Pain Ears, Nose, & Throat: No Symptoms, No Ear Pain, No Ear Discharge Respiratory: No Symptoms, No Cough, No Dyspnea, No Stridor, No Wheezing Cardiac: No Symptoms, No Chest Pain, No Palpitations, No Syncope Abdominal/Gastrointestinal: No Symptoms, No Abdominal Pain, No Nausea, No Vomiting, No Diarrhea Genitourinary Symptoms: No No Symptoms, No Dysuria, No Frequency, No Hematuria Musculoskeletal: No Symptoms, No Arthralgias, No Back Pain, No Neck Pain, No Fall, No Injury Skin: No Symptoms Neurological: Headache, Seizure, No Dizziness, No Focal Weakness, No Gait Changes, No Lethargy, No Paralysis, No Sensory Changes, No Speech Changes Psychological: No Symptoms, No Alcohol Abuse, No Drug Abuse, No Anxiety Endocrine: No Symptoms Hematologic/Lymphatic: No Symptoms Immunological/Allergic: No Symptoms All Other Systems: Reviewed and Negative - Past Medical History Pertinent Past Medical History: Yes Neurological History: Epilepsy ENT History: No Pertinent History Cardiac History: No Pertinent History Respiratory History: No Pertinent History Endocrine Medical History: No Pertinent History Musculoskeletal History: No Pertinent History GI Medical History: No Pertinent History History: No Pertinent History Psycho-Social History: No Pertinent History Female Reproductive Disorders: No Pertinent History Other Medical History: kidney stones - Past Surgical History Past Surgical History: Yes Neuro Surgical History: No Pertinent History Cardiac: No Pertinent History Respiratory: No Pertinent History Gastrointestinal: No Pertinent History Genitourinary: No Pertinent History Musculoskeletal: Orthopedic Surgery Female Surgical History: Section, Tubal Ligation Other Surgical History: LEFT WRIST, T & A. - Social History Smoking Status: Current every day smoker How long have you smoked: 14 years Exposure to second hand smoke: Yes Alcohol Use: None Drug Use: none Patient Lives Alone: No Significant Family History: no pertinent family hx - Nursing Vital Signs Nursing Vital Signs: Initial Vital Signs Temperature 98.7 F 01/31/18 03:00 Pulse Rate 86 01/31/18 03:00 Respiratory Rate 16 01/31/18 03:00 Blood Pressure 106/78 01/31/18 03:00 O2 Sat by Pulse Oximetry 98 01/31/18 03:00 Pain Scale Pain Intensity 8 - Staples Coma Scale Best Eye Response (Staples): (4) open spontaneously Best Verbal Response (Staples): (5) oriented Best Motor Response (Staples): (6) obeys commands Staples Total: 15 - Physical Exam General Appearance: no apparent distress, alert Eye Exam: bilateral eye: normal inspection, PERRL, EOMI Ears, Nose, Throat Exam: normal ENT inspection, TMs normal, pharynx normal, moist mucous membranes Neck Exam: normal inspection, non-tender, supple, full range of motion Respiratory: normal breath sounds, lungs clear, airway intact, No chest tenderness, No respiratory distress, No accessory muscle use, No rhonchi, No wheezing, No stridor Cardiovascular: regular rate/rhythm, No normal heart sounds, No normal peripheral pulses Gastrointestinal: soft, normal bowel sounds, No tenderness, No guarding, No rebound Pelvic Exam: not done Rectal Exam: not done Back Exam: normal inspection, normal range of motion, No CVA tenderness, No vertebral tenderness Extremity Exam: normal inspection, normal range of motion, pelvis stable Mental Status: alert, oriented x 3, cooperative, No agitated, No uncooperative seasoning mixer Exam: normal hearing, normal speech, PERRL, No abnormal eye position, No abnormal gag reflex, No abnormal pupil position, No abnormal speech, No facial asymmetry Coordination/Gait: normal gait Motor/Sensory: no motor deficit, no sensory deficit Skin Exam: normal color, warm, dry SpO2 Interpretation: normal Oxygen Delivery: Room Air - Course Nursing assessment & vital signs reviewed: Yes Ordered Tests: Active Orders 24 hr Category Date Time Status Side Gluer STAT Care 01/31/18 03:26 Active IV Insertion STAT Care 01/31/18 03:25 Active CBC W DIFF Stat Lab 01/31/18 03:34 Completed CMP Stat Lab 01/31/18 03:34 Completed HCG,QUALITATIVE URINE Stat Lab 01/31/18 03:34 Completed UA W/ MICROSCOPIC Stat Lab 01/31/18 03:34 Completed Urine Triage Profile Stat Lab 01/31/18 03:34 Completed Medication Summary Generic Name Dose Route Start Last Admin Trade Name Freq PRN Reason Stop Dose Admin Valproate Sodium 500 mg/ 105 mls @ 210 mls/hr 01/31/18 04:16 Sodium Chloride IV 01/31/18 04:45 STAT ONE Discontinued Medications Generic Name Dose Route Start Last Admin Trade Name Maikol PRN Reason Stop Dose Admin Sodium Chloride Confirm 01/31/18 04:20 Sodium Chloride 0.9% 100 Ml Ivpb Administered 01/31/18 04:21 Dose 100 mls @ ud IV .STK-MED ONE Lorazepam 1 mg 01/31/18 04:17 Ativan 2 Mg/1 Ml Vial IV 01/31/18 04:18 STAT ONE Lorazepam Confirm 01/31/18 04:19 Ativan 2 Mg/1 Ml Vial Administered 01/31/18 04:20 Dose 2 mg .ROUTE .STK-MED ONE Valproate Sodium Confirm 01/31/18 04:19 Depacon 500 Mg/5 Ml Administered 01/31/18 04:20 Dose 500 mg IV .STK-MED ONE Lab/Rad Data: Laboratory Result Diagrams 01/31/18 03:34 01/31/18 03:34 Laboratory Results 01/31/18 01/31/18 01/31/18 Range/Units 03:34 03:34 03:34 WBC (4.0-10.5) K/mm3 RBC (4.1-5.4) M/mm3 Hgb (12.0-16.0) gm/dl Hct (35-47) % MCV (78-100) fl MCH (26-32) pg MCHC (32-36) g/dl RDW (11.5-14.0) % Plt Count (150-450) K/mm3 MPV (6-9.5) fl Gran % (36.0-66.0) % Eos # (Auto) (0-0.5) Absolute Lymphs (auto) (1.0-4.6) Absolute Monos (auto) (0.0-1.3) Lymphocytes % (24.0-44.0) % Monocytes % (0.0-12.0) % Eosinophils % (0.00-5.0) % Basophils % (0.0-0.4) % Absolute Granulocytes (1.4-6.9) Basophils # (0-0.4) Sodium (137-145) mmol/L Potassium (3.5-5.1) mmol/L Chloride (98-107) mmol/L Carbon Dioxide (22-30) mmol/L Anion Gap (5-15) MEQ/L BUN (7-17) mg/dL Creatinine (0.52-1.04) mg/dL Estimated GFR ML/MIN Glucose (74-106) mg/dL Calcium (8.4-10.2) mg/dL Total Bilirubin (0.2-1.3) mg/dL AST (14-36) U/L ALT (0-35) U/L Alkaline Phosphatase (38-126) U/L Serum Total Protein (6.3-8.2) g/dL Albumin (3.5-5.0) g/dL Ur Collection Type VOID Urine Color YELLOW (YELLOW) Urine Appearance CLEAR (CLEAR) Urine pH 7.0 (5-6) Ur Specific [place] 1.015 (1.005-1.025) Urine Protein NEGATIVE (Negative) Urine Ketones NEGATIVE (NEGATIVE) Urine Blood 250 (0-5) Carlos/ul Urine Nitrite NEGATIVE (NEGATIVE) Urine Bilirubin NEGATIVE (NEGATIVE) Urine Urobilinogen NORMAL (0-1) mg/dL Ur Leukocyte Esterase NEGATIVE (NEGATIVE) Urine Microscopic RBC 2-5 (0-2) /HPF Urine Microscopic WBC 0-2 (0-5) /HPF Ur Epithelial Cells MODERATE (FEW) /HPF Amorphous Crystals FEW (NEGATIVE) /HPF Urine Bacteria FEW (NEGATIVE) /HPF Urine Culture Reflexed NO (NO) Urine Glucose NEGATIVE (NEGATIVE) mg/dL Urine HCG, Qual NEGATIVE (Negative) Urine Opiates Level NEGATIVE (NEGATIVE) Ur Methadone NEGATIVE (NEGATIVE) Urine Barbiturates NEGATIVE (NEGATIVE) Valproic Acid (50-100) ug/mL Ur Phencyclidine (PCP) NEGATIVE (NEGATIVE) Urine Amphetamine NEGATIVE (NEGATIVE) U Benzodiazepine Level NEGATIVE (NEGATIVE) Urine Cocaine NEGATIVE (NEGATIVE) Urine Marijuana (THC) NEGATIVE (NEGATIVE) 01/31/18 01/31/18 01/31/18 Range/Units 03:34 03:34 03:34 WBC 12.7 H (4.0-10.5) K/mm3 RBC 4.67 (4.1-5.4) M/mm3 Hgb 14.6 (12.0-16.0) gm/dl Hct 42.6 (35-47) % MCV 91.2 (78-100) fl MCH 31.3 (26-32) pg MCHC 34.3 (32-36) g/dl RDW 13.6 (11.5-14.0) % Plt Count 289 (150-450) K/mm3 MPV 10.1 H (6-9.5) fl Gran % 52.8 (36.0-66.0) % Eos # (Auto) 0.38 (0-0.5) Absolute Lymphs (auto) 4.57 (1.0-4.6) Absolute Monos (auto) 1.00 (0.0-1.3) Lymphocytes % 36.1 (24.0-44.0) % Monocytes % 7.9 (0.0-12.0) % Eosinophils % 3.0 (0.00-5.0) % Basophils % 0.2 (0.0-0.4) % Absolute Granulocytes 6.67 (1.4-6.9) Basophils # 0.03 (0-0.4) Sodium 141 (137-145) mmol/L Potassium 4.1 (3.5-5.1) mmol/L Chloride 111 H (98-107) mmol/L Carbon Dioxide 20 L (22-30) mmol/L Anion Gap 14.3 (5-15) MEQ/L BUN 8 (7-17) mg/dL Creatinine 0.66 (0.52-1.04) mg/dL Estimated GFR > 60.0 ML/MIN Glucose 92 (74-106) mg/dL Calcium 9.1 (8.4-10.2) mg/dL Total Bilirubin 0.20 (0.2-1.3) mg/dL AST 18 (14-36) U/L ALT 16 (0-35) U/L Alkaline Phosphatase 89 (38-126) U/L Serum Total Protein 7.0 (6.3-8.2) g/dL Albumin 4.2 (3.5-5.0) g/dL Ur Collection Type Urine Color (YELLOW) Urine Appearance (CLEAR) Urine pH (5-6) Ur Specific [place] (1.005-1.025) Urine Protein (Negative) Urine Ketones (NEGATIVE) Urine Blood (0-5) Carlos/ul Urine Nitrite (NEGATIVE) Urine Bilirubin (NEGATIVE) Urine Urobilinogen (0-1) mg/dL Ur Leukocyte Esterase (NEGATIVE) Urine Microscopic RBC (0-2) /HPF Urine Microscopic WBC (0-5) /HPF Ur Epithelial Cells (FEW) /HPF Amorphous Crystals (NEGATIVE) /HPF Urine Bacteria (NEGATIVE) /HPF Urine Culture Reflexed (NO) Urine Glucose (NEGATIVE) mg/dL Urine HCG, Qual (Negative) Urine Opiates Level (NEGATIVE) Ur Methadone (NEGATIVE) Urine Barbiturates (NEGATIVE) Valproic Acid 17.4 L (50-100) ug/mL Ur Phencyclidine (PCP) (NEGATIVE) Urine Amphetamine (NEGATIVE) U Benzodiazepine Level (NEGATIVE) Urine Cocaine (NEGATIVE) Urine Marijuana (THC) (NEGATIVE) - Progress Progress: unchanged, re-examined Counseled pt/family regarding: lab results, diagnosis, need for follow-up - Departure Time of Disposition: 04:25 Departure Disposition: Home Clinical Impression: Seizure Condition: Stable Critical Care Time: No Referrals: TORI SOUTH [Primary Care Provider] - Additional Instructions: take your medications as prescribed. follow up with your neurologist on thursday for further management
[2018-01-31 03:53] LABS: Appearance CLEAR (CLEAR); Bacteria FEW /HPF (NEGATIVE); Bilirubin NEGATIVE (NEGATIVE); Blood 250 Ery/ul (0-5); Epithelial Cells MODERATE /HPF (FEW); Glucose NEGATIVE (NEGATIVE); Ketones NEGATIVE (NEGATIVE); Leukocyte Esterase NEGATIVE (NEGATIVE); Nitrite NEGATIVE (NEGATIVE); Protein,Urine Dip NEGATIVE (Negative); Specific Gravity 1.015 (1.005-1.025); Urobilinogen NORMAL mg/dL (0-1); WBC 0-2 /HPF (0-5)
[2018-01-31 03:54] LABS: Amourphous Crystal FEW /HPF (NEGATIVE)
[2018-01-31 03:55] LABS: BASOPHIL % 0.2 % (0.0-0.4); Basophil (Absolute #) 0.03 (0-0.4); Eosinophil (Absolute #) 0.38 (0-0.5); Granulocyte Absolute (ANC) 6.67 (1.4-6.9); Granulocytes % 52.8 % (36.0-66.0); Hematocrit 42.6 % (35-47); Hemoglobin 14.6 gm/dl (12.0-16.0); Lymphocyte (Absolute #) 4.57 (1.0-4.6); Lymphocytes % 36.1 % (24.0-44.0); Mean Cell Volume 91.2 fl (78-100); Mean Corpuscular Hemoglobin 31.3 pg (26-32); Mean Corpuscular Hgb Concent. 34.3 g/dl (32-36); Mean Platelet Volume 10.1 fl (6-9.5); Monocytes % 7.9 % (0.0-12.0); Platelet Count 289 K/mm3 (150-450); Red Blood Count 4.67 M/mm3 (4.1-5.4); Red Cell Distribution Width 13.6 % (11.5-14.0); White Blood Count 12.7 K/mm3 (4.0-10.5)
[2018-01-31 03:57] LABS: Amphetamine,Urine NEGATIVE (NEGATIVE); Barbiturate,Urine NEGATIVE (NEGATIVE); Benzodiazepine,Urine NEGATIVE (NEGATIVE); Cocaine,Urine NEGATIVE (NEGATIVE); Methadone,Urine NEGATIVE (NEGATIVE); Opiate,Urine NEGATIVE (NEGATIVE); PCP,Urine NEGATIVE (NEGATIVE); THC,Urine NEGATIVE (NEGATIVE)
[2018-01-31 04:03] LABS: ALBUMIN 4.2 g/dL (3.5-5.0); ALKALINE PHOSPHATASE 89 U/L (38-126); ANION GAP 14.3 MEQ/L (5-15); BLOOD UREA NITROGEN 8 mg/dL (7-17); CHLORIDE 111 mmol/L (98-107); Calcium 9.1 mg/dL (8.4-10.2); Carbon Dioxide 20 mmol/L (22-30); Creatinine 1 0.66 mg/dL (0.52-1.04); Glucose 92 mg/dL (74-106); Potassium 4.1 mmol/L (3.5-5.1); SGOT/AST 18 U/L (14-36); SGPT/ALT 16 U/L (0-35); SODIUM 141 mmol/L (137-145)
[2018-01-31] MEDS ORDERED: Depacon 500 MG/5 ML*** 500 MG in Sodium Chloride 0.9% 100 ML IVPB 100 ML IV ONE (04:16)
[2018-01-31] MEDS ORDERED: Ativan 2 MG/1 ML VIAL IV ONE (04:17)
[2018-01-31] MEDS ORDERED: Depacon 500 MG/5 ML IV ONE (04:19)
[2018-01-31] MEDS ORDERED: Ativan 2 MG/1 ML VIAL ONE (04:19)
[2018-01-31] MEDS ORDERED: Sodium Chloride 0.9% 100 ML IVPB 100 ML IV ONE (04:20)
[2018-01-31 05:25] VITALS: BP 112/68; PULSE 91; O2SAT 95
== END 2018-01-31 05:33 | disposition home or self-care (01) ==
LOC: ED 02:56
DX: R56.9 Unspecified convulsions (principal); Z79.899 Other long term (current) drug therapy
CPT/HCPCS: 36000; 36415; 80053; 80164; 80307; 81001; 84703; 85025; 93041; 96365; 96374; 99284; J2060

== ENCOUNTER 2018-06-29 19:14 | Emergency (ER) | payer OTHER ==
[2018-06-29] MEDS ORDERED: Sodium Chloride 0.9% 1000 ML 1,000 ML IV SCH (20:15)
[2018-06-29 20:16] LABS: Hematocrit 41.7 % (35-47); Hemoglobin 13.7 gm/dl (12.0-16.0); Mean Cell Volume 93.3 fl (78-100); Mean Corpuscular Hemoglobin 30.6 pg (26-32); Mean Corpuscular Hgb Concent. 32.9 g/dl (32-36); Mean Platelet Volume 10.4 fl (6-9.5); Platelet Count 259 K/mm3 (150-450); Red Blood Count 4.47 M/mm3 (4.1-5.4); Red Cell Distribution Width 13.4 % (11.5-14.0); White Blood Count 13.6 K/mm3 (4.0-10.5)
[2018-06-29] MEDS ORDERED: Sodium Chloride 0.9% 1000 ML 1,000 ML ONE (20:16)
[2018-06-29 20:23] LABS: ALBUMIN 3.9 g/dL (3.5-5.0); ALKALINE PHOSPHATASE 90 U/L (38-126); ANION GAP 13.6 MEQ/L (5-15); BLOOD UREA NITROGEN 8 mg/dL (7-17); CHLORIDE 110 mmol/L (98-107); Calcium 8.8 mg/dL (8.4-10.2); Carbon Dioxide 22 mmol/L (22-30); Creatinine 1 0.65 mg/dL (0.52-1.04); Glucose 82 mg/dL (74-106); Potassium 4.2 mmol/L (3.5-5.1); SGOT/AST 27 U/L (14-36); SGPT/ALT 46 U/L (0-35); SODIUM 141 mmol/L (137-145); Total Protein 6.8 g/dL (6.3-8.2)
[2018-06-29 20:24] LABS: Appearance CLOUDY (CLEAR); Bacteria MODERATE /HPF (NEGATIVE); Bilirubin NEGATIVE (NEGATIVE); Blood NEGATIVE Ery/ul (0-5); Epithelial Cells FEW /HPF (FEW); Glucose NEGATIVE (NEGATIVE); Ketones NEGATIVE (NEGATIVE); Leukocyte Esterase NEGATIVE (NEGATIVE); Mucus MODERATE /HPF (NEGATIVE); Nitrite NEGATIVE (NEGATIVE); Protein,Urine Dip NEGATIVE (Negative); RBC 0-2 /HPF (0-2); Specific Gravity 1.018 (1.005-1.025); Urobilinogen NEGATIVE mg/dL (0-1)
[2018-06-29] MEDS ORDERED: TYLENOL 325 MG PO ONE (20:55)
--- NOTE | 2018-06-29 20:58 | ERPHSYRPT ---
- History of Present Illness Time Seen by Provider: 06/29/18 20:52 Source: patient Exam Limitations: no limitations Patient Subjective Stated Complaint: STATES HAS HAD SEVERAL SEIZURES TODAY AND HAD A SEIZURE THREE DAYS AGO. HX EPILEPSY. Triage Nursing Assessment: TO ROOM PER W/C. SKIN W/D, COLOR NORMAL, RESP NONLABORED. PATIENT DROWSY AND STATES SHE FEELS A LITTLE FUZZY. GEORGINA. IS A/O TIMES THREE. Physician History: 32-year-old white female with history of seizure disorder, kidney stones, C- section, tubal ligation, orthopedic surgery, left wrist surgery, tonsillectomy and adenoidectomy Arrives with complaints of multiple seizures during which she will lose consciousness for several seconds symptoms going on since today. Patient has not been otherwise ill. Past medical history includes seizures, kidney stones, , tubal ligation Past surgical history includes , tubal ligation, orthopedic surgery, left wrist surgery, tonsillectomy and adenoidectomy Social history positive for tobacco use Timing/Duration: today, other (one seizure 3 days ago mulltiple seizures today) Severity: mild Modifying Factors: Improves With: nothing Associated Symptoms: headaches, No nausea, No vomiting, No abdominal pain, No shortness of breath, No heartburn, No diaphoresis, No cough, No chills, No chest pain, No fever, No loss of appetite, No malaise, No rash, No syncope, No seizure, No weakness Allergies/Adverse Reactions: codeine [Codeine] Allergy (Verified 06/29/18 20:00) ITCHY, RASH morphine Allergy (Verified 06/29/18 20:00) Rash sulfamethoxazole [From Bactrim] Allergy (Verified 06/29/18 20:00) trimethoprim [From Bactrim] Allergy (Verified 06/29/18 20:00) cephalexin monohydrate [From Keflex] Adverse Reaction (Verified 06/29/18 20:00) Vomiting Cephalosporins Adverse Reaction (Verified 06/29/18 20:00) Vomiting Home Medications: Lamotrigine 100 mg [lamICTAL 100MG TABLET] 100 mg PO BID 09/23/12 [History ] Topiramate 100 mg [Topamax 100 MG] 300 mg PO HS 09/23/12 [History] Cyclobenzaprine HCl [Flexeril] 5 mg PO HS 04/12/17 [History] Divalproex Sodium [Depakote] 500 mg PO BID 04/12/17 [History] Naproxen 500 mg [Naprosyn 500 MG] 500 mg PO BID PRN 06/25/17 [History] Omeprazole 20 MG [Prilosec 20 mg] 20 mg PO DAILY 06/25/17 [History] Hx Tetanus, Diphtheria Vaccination/Date Given: Yes Hx Influenza Vaccination/Date Given: No Hx Pneumococcal Vaccination/Date Given: No - Review of Systems Constitutional: No Fever, No Chills Eyes: No Symptoms Ears, Nose, & Throat: No Symptoms Respiratory: No Cough, No Dyspnea Cardiac: No Chest Pain, No Edema, No Syncope Abdominal/Gastrointestinal: No Abdominal Pain, No Nausea, No Vomiting, No Diarrhea Genitourinary Symptoms: No Dysuria Musculoskeletal: No Back Pain, No Neck Pain Skin: No Rash Neurological: Headache, Seizure, No Dizziness, No Focal Weakness, No Gait Changes, No Irritability, No Lethargy, No Paralysis, No Parasthesia, No Sensory Changes, No Speech Changes, No Tics, No Tremors, No Vertigo Psychological: No Symptoms Endocrine: No Symptoms All Other Systems: Reviewed and Negative - Past Medical History Pertinent Past Medical History: Yes Neurological History: Epilepsy ENT History: No Pertinent History Cardiac History: No Pertinent History Respiratory History: No Pertinent History Endocrine Medical History: No Pertinent History Musculoskeletal History: No Pertinent History GI Medical History: No Pertinent History History: No Pertinent History Psycho-Social History: No Pertinent History Female Reproductive Disorders: No Pertinent History Other Medical History: kidney stones - Past Surgical History Past Surgical History: Yes Neuro Surgical History: No Pertinent History Cardiac: No Pertinent History Respiratory: No Pertinent History Gastrointestinal: No Pertinent History Genitourinary: No Pertinent History Musculoskeletal: Orthopedic Surgery Female Surgical History: Section, Tubal Ligation Other Surgical History: LEFT WRIST, T & A. - Social History Smoking Status: Current every day smoker How long have you smoked: 14 years Exposure to second hand smoke: Yes Alcohol Use: None Drug Use: none Patient Lives Alone: No Significant Family History: no pertinent family hx - Female History Hx Now: No (BTL) - Nursing Vital Signs Nursing Vital Signs: Initial Vital Signs Temperature 97.7 F 06/29/18 19:45 Pulse Rate 73 06/29/18 19:45 Respiratory Rate 16 06/29/18 19:45 Blood Pressure 114/72 06/29/18 19:45 O2 Sat by Pulse Oximetry 98 06/29/18 19:45 Pain Scale Pain Intensity 9 - Physical Exam General Appearance: no apparent distress, alert Eye Exam: PERRL/EOMI, eyes nml inspection Ears, Nose, Throat Exam: normal ENT inspection, TMs normal, pharynx normal, moist mucous membranes Neck Exam: normal inspection, non-tender, supple, full range of motion Respiratory Exam: normal breath sounds, lungs clear, No respiratory distress Cardiovascular Exam: regular rate/rhythm, normal heart sounds, normal peripheral pulses, capillary refill <2 sec Gastrointestinal/Abdomen Exam: soft, normal bowel sounds, No tenderness, No mass Back Exam: normal inspection (is given EKG a seizur), normal range of motion, No CVA tenderness, No vertebral tenderness Extremity Exam: normal inspection, normal range of motion, pelvis stable Neurologic Exam: alert, oriented x 3, cooperative, lumber sorter machine II-XII nml as tested, normal mood/affect, nml cerebellar function, nml station & gait, sensation nml, No motor deficits Skin Exam: normal color, warm, dry, No rash Lymphatic Exam: No adenopathy SpO2 Interpretation: normal (9or8%) SpO2: 98 - Course Nursing assessment & vital signs reviewed: Yes EKG Interpreted by Me: RATE (62 bpm), NORMAL AXIS, Other (EKG: Sinus rhythm, 62 bpm, normal axis, no acute ST or T wave changes, compared to June 01, 2014) Ordered Tests: Active Orders 24 hr Category Date Time Status EKG-ER Only STAT Care 06/29/18 20:58 Active IV Insertion STAT Care 06/29/18 20:02 Active CBC W DIFF Stat Lab 06/29/18 20:00 Completed CMP Stat Lab 06/29/18 20:00 Completed CULTURE,URINE Stat Lab 06/29/18 20:00 Received HCG QUALITATIVE,SERUM Stat Lab 06/29/18 20:30 Completed Manual Differential NC Stat Lab 06/29/18 20:00 Completed UA W/RFX UR CULTURE Stat Lab 06/29/18 20:00 Completed Medication Summary Generic Name Dose Route Start Last Admin Trade Name Freq PRN Reason Stop Dose Admin Sodium Chloride 1,000 mls @ 100 mls/hr 06/29/18 20:15 06/29/18 20:17 Sodium Chloride 0.9% 1000 Ml IV 07/29/18 20:14 100 mls/hr .Q10H ANEUDY Administration Discontinued Medications Generic Name Dose Route Start Last Admin Trade Name Maikol PRN Reason Stop Dose Admin Acetaminophen 650 mg 06/29/18 20:55 06/29/18 21:07 Tylenol 325 Mg PO 06/29/18 20:56 650 mg STAT ONE Administration Acetaminophen Confirm 06/29/18 21:03 Tylenol 325 Mg Administered 06/29/18 21:04 Dose 650 mg .ROUTE .STK-MED ONE Divalproex Sodium 500 mg 06/29/18 20:54 06/29/18 21:[address] 250 Mg Tab PO 06/29/18 20:55 500 mg ONCE ONE Administration Lab/Rad Data: Laboratory Result Diagrams 06/29/18 20:00 06/29/18 20:00 Laboratory Results 06/29/18 06/29/18 06/29/18 Range/Units 20:30 20:00 20:00 WBC (4.0-10.5) K/mm3 RBC (4.1-5.4) M/mm3 Hgb (12.0-16.0) gm/dl Hct (35-47) % MCV (78-100) fl MCH (26-32) pg MCHC (32-36) g/dl RDW (11.5-14.0) % Plt Count (150-450) K/mm3 MPV (6-9.5) fl Sodium (137-145) mmol/L Potassium (3.5-5.1) mmol/L Chloride (98-107) mmol/L Carbon Dioxide (22-30) mmol/L Anion Gap (5-15) MEQ/L BUN (7-17) mg/dL Creatinine (0.52-1.04) mg/dL Estimated GFR ML/MIN Glucose (74-106) mg/dL Calcium (8.4-10.2) mg/dL Total Bilirubin (0.2-1.3) mg/dL AST (14-36) U/L ALT (0-35) U/L Alkaline Phosphatase (38-126) U/L Serum Total Protein (6.3-8.2) g/dL Albumin (3.5-5.0) g/dL Serum , Qual NEGATIVE (Negative) Urine Color YELLOW (YELLOW) Urine Appearance CLOUDY (CLEAR) Urine pH 6.0 (5-6) Ur Specific [place] 1.018 (1.005-1.025) Urine Protein NEGATIVE (Negative) Urine Ketones NEGATIVE (NEGATIVE) Urine Blood NEGATIVE (0-5) Carlos/ul Urine Nitrite NEGATIVE (NEGATIVE) Urine Bilirubin NEGATIVE (NEGATIVE) Urine Urobilinogen NEGATIVE (0-1) mg/dL Ur Leukocyte Esterase NEGATIVE (NEGATIVE) Urine WBC (Auto) 3-5 (0-5) /HPF Urine RBC (Auto) 0-2 (0-2) /HPF U Epithel Cells (Auto) FEW (FEW) /HPF Urine Bacteria (Auto) MODERATE (NEGATIVE) /HPF Unidentified Crystals 2-5 (NEGATIVE) /HPF Other Casts (Auto) 0-2 (NEGATIVE) /LPF Urine Mucus (Auto) MODERATE (NEGATIVE) /HPF Urine Culture Reflexed YES (NO) Urine Glucose NEGATIVE (NEGATIVE) mg/dL Valproic Acid 41.8 L (50-100) ug/mL 06/29/18 06/29/18 Range/Units 20:00 20:00 WBC 13.6 H (4.0-10.5) K/mm3 RBC 4.47 (4.1-5.4) M/mm3 Hgb 13.7 (12.0-16.0) gm/dl Hct 41.7 (35-47) % MCV 93.3 (78-100) fl MCH 30.6 (26-32) pg MCHC 32.9 (32-36) g/dl RDW 13.4 (11.5-14.0) % Plt Count 259 (150-450) K/mm3 MPV 10.4 H (6-9.5) fl Sodium 141 (137-145) mmol/L Potassium 4.2 (3.5-5.1) mmol/L Chloride 110 H (98-107) mmol/L Carbon Dioxide 22 (22-30) mmol/L Anion Gap 13.6 (5-15) MEQ/L BUN 8 (7-17) mg/dL Creatinine 0.65 (0.52-1.04) mg/dL Estimated GFR > 60.0 ML/MIN Glucose 82 (74-106) mg/dL Calcium 8.8 (8.4-10.2) mg/dL Total Bilirubin 0.30 (0.2-1.3) mg/dL AST 27 (14-36) U/L ALT 46 H (0-35) U/L Alkaline Phosphatase 90 (38-126) U/L Serum Total Protein 6.8 (6.3-8.2) g/dL Albumin 3.9 (3.5-5.0) g/dL Serum , Qual (Negative) Urine Color (YELLOW) Urine Appearance (CLEAR) Urine pH (5-6) Ur Specific [place] (1.005-1.025) Urine Protein (Negative) Urine Ketones (NEGATIVE) Urine Blood (0-5) Carlos/ul Urine Nitrite (NEGATIVE) Urine Bilirubin (NEGATIVE) Urine Urobilinogen (0-1) mg/dL Ur Leukocyte Esterase (NEGATIVE) Urine WBC (Auto) (0-5) /HPF Urine RBC (Auto) (0-2) /HPF U Epithel Cells (Auto) (FEW) /HPF Urine Bacteria (Auto) (NEGATIVE) /HPF Unidentified Crystals (NEGATIVE) /HPF Other Casts (Auto) (NEGATIVE) /LPF Urine Mucus (Auto) (NEGATIVE) /HPF Urine Culture Reflexed (NO) Urine Glucose (NEGATIVE) mg/dL Valproic Acid (50-100) ug/mL - Progress Progress: improved Progress Note: 06/29/18 22:01 Patient with no further problems. Patient was given Depakote 500 mg orally. Also Ativan 1 mg IV. Also 1 L of normal saline. I've discussed the patient's case with Dr. Fuentes she is a contact his office and arrange follow-up appointment. Patient has been given instructions for seizure precautions. She is to continue her medications as prescribed. She states that she has an appointment with Dr. Fuentes Thursday. - Departure Time of Disposition: 22:02 Departure Disposition: Home Clinical Impression: Seizure Condition: Fair Critical Care Time: No Referrals: TORI FUENTES [Primary Care Provider] - Instructions: Seizures, Adult (DC) Additional Instructions: Return home. Rest, plenty of fluids. Take medications as prescribed by your family doctor/neurologist. No heights, no driving, no hazardous activity, take showers instead of baths. Do not engage in any activity which might harm yourself or others. Follow-up with Dr. Fuentes call tomorrow to arrange follow-up. Return for acute distress or for severe symptoms.
[2018-06-29] MEDS ORDERED: TYLENOL 325 MG ONE (21:03)
[2018-06-29 22:00] VITALS: BP 99/57; PULSE 66
[2018-06-29] MEDS ORDERED: Ativan 2 MG/1 ML VIAL IV ONE (22:00)
[2018-06-29 22:03] VITALS: O2SAT 98
[2018-06-29] MEDS ORDERED: Ativan 2 MG/1 ML VIAL ONE (22:11)
[2018-06-30 00:28] LABS: BAND 1 % (0.0-2.0); Eosinophil 9 % (0.00-3.0); Lymphocytes 36 % (24-44); Monocyte 5 % (0.0-12.0); Neutrophils 49 % (36.0-66.0); Platelet Estimate NORMAL (NORMAL); Total Cells Counted 100
== END 2018-06-29 22:51 | disposition home or self-care (01) ==
LOC: ED 19:14
DX: G40.909 Epilepsy, unspecified, not intractable, without status epilepticus (principal); Z87.442 Personal history of urinary calculi; Z72.0 Tobacco use; Z79.899 Other long term (current) drug therapy
CPT/HCPCS: 36000; 36415; 80053; 80164; 80175; 81001; 81025; 85025; 87086; 93005; 96360; 96361; 96374; 99284; J2060; A9270-GY

== ENCOUNTER 2019-01-04 00:04 | Emergency (ER) | payer OTHER ==
--- NOTE | 2019-01-04 00:21 | ERPHSYRPT ---
- History of Present Illness Time Seen by Provider: 01/04/19 00:21 Source: patient, family Exam Limitations: no limitations Physician History: 33 y/o white female with known seizure d/o presents with breakthrough seizure. occurred approx 10pm. pt was having a mild seizure and thought she was out of it enough and stood up and then fell hitting her head and neck. no new meds or dosage changes. Timing/Duration: today Severity: moderate Character of Deficits: none Deficits: no difficulties Baseline/Normal Cognition: alert oriented x 3 Current Cognition: alert oriented x 3 Baseline Gait: walks w/o assistance Associated Symptoms: nausea, seizures, headache, No loss of consciousness, No vomiting, No vision changes Allergies/Adverse Reactions: codeine [Codeine] Allergy (Verified 01/04/19 00:54) ITCHY, RASH morphine Allergy (Verified 01/04/19 00:54) Rash sulfamethoxazole [From Bactrim] Allergy (Verified 01/04/19 00:54) trimethoprim [From Bactrim] Allergy (Verified 01/04/19 00:54) cephalexin monohydrate [From Keflex] Adverse Reaction (Verified 01/04/19 00:54) Vomiting Cephalosporins Adverse Reaction (Verified 01/04/19 00:54) Vomiting Home Medications: Lamotrigine 100 mg [lamICTAL 100MG TABLET] 100 mg PO BID 09/23/12 [History ] Topiramate 100 mg [Topamax 100 MG] 300 mg PO HS 09/23/12 [History] Cyclobenzaprine HCl [Flexeril] 10 mg PO HS 04/12/17 [History] Divalproex Sodium [Depakote] 500 mg PO BID 04/12/17 [History] Naproxen 500 mg [Naprosyn 500 MG] 500 mg PO BID PRN 06/25/17 [History] Omeprazole 20 MG [Prilosec 20 mg] 20 mg PO DAILY 06/25/17 [History] Hx Tetanus, Diphtheria Vaccination/Date Given: Yes Hx Influenza Vaccination/Date Given: No Hx Pneumococcal Vaccination/Date Given: No - Review of Systems Constitutional: No Symptoms Eyes: No Symptoms Ears, Nose, & Throat: No Symptoms Respiratory: No Symptoms Cardiac: No Symptoms Abdominal/Gastrointestinal: No Symptoms Genitourinary Symptoms: No Symptoms Musculoskeletal: No Symptoms Skin: No Symptoms Neurological: Headache, Seizure Psychological: No Symptoms Endocrine: No Symptoms Hematologic/Lymphatic: No Symptoms Immunological/Allergic: No Symptoms All Other Systems: Reviewed and Negative - Past Medical History Pertinent Past Medical History: Yes Neurological History: Epilepsy ENT History: No Pertinent History Cardiac History: No Pertinent History Respiratory History: No Pertinent History Endocrine Medical History: No Pertinent History Musculoskeletal History: No Pertinent History GI Medical History: No Pertinent History History: No Pertinent History Psycho-Social History: No Pertinent History Female Reproductive Disorders: No Pertinent History Other Medical History: kidney stones - Past Surgical History Past Surgical History: Yes Neuro Surgical History: No Pertinent History Cardiac: No Pertinent History Respiratory: No Pertinent History Gastrointestinal: No Pertinent History Genitourinary: No Pertinent History Musculoskeletal: Orthopedic Surgery Female Surgical History: Section, Tubal Ligation Other Surgical History: LEFT WRIST, T & A. - Social History Smoking Status: Current every day smoker How long have you smoked: 14 years Exposure to second hand smoke: Yes Alcohol Use: None Drug Use: none Patient Lives Alone: No Significant Family History: no pertinent family hx - Nursing Vital Signs Nursing Vital Signs: Initial Vital Signs Temperature 99 F 01/04/19 00:28 Pulse Rate 86 01/04/19 00:28 Respiratory Rate 20 01/04/19 00:28 Blood Pressure 123/73 01/04/19 00:28 O2 Sat by Pulse Oximetry 96 01/04/19 00:28 Pain Scale Pain Intensity 9 - Ryan Coma Scale Best Eye Response ([place]): (4) open spontaneously Best Verbal Response ([place]): (5) oriented Best Motor Response (Ryan): (6) obeys commands Ryan Total: 15 - Physical Exam General Appearance: no apparent distress, alert, anxiety Eye Exam: bilateral eye: normal inspection, PERRL, EOMI Ears, Nose, Throat Exam: normal ENT inspection, moist mucous membranes Neck Exam: normal inspection, non-tender, supple, full range of motion Respiratory: normal breath sounds, lungs clear, airway intact, No chest tenderness, No respiratory distress Cardiovascular: regular rate/rhythm, normal heart sounds, normal peripheral pulses Gastrointestinal: soft, normal bowel sounds, No tenderness Pelvic Exam: not done Rectal Exam: not done Back Exam: normal inspection, normal range of motion, No CVA tenderness Extremity Exam: normal inspection, normal range of motion, No pelvis stable Mental Status: alert, oriented x 3, 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 Exam: normal hearing, normal speech, PERRL, tongue midline Coordination/Gait: normal finger to nose, normal gait, normal cerebellar function Motor/Sensory: no motor deficit, no sensory deficit, no pronator drift Skin Exam: normal color, warm, dry SpO2 Interpretation: normal O2 Delivery: Room Air Ordered Tests: Active Orders 24 hr Category Date Time Status Lead Coater STAT Care 01/04/19 00:23 Active Clean Catch Urine Specimen STAT Care 01/04/19 00:21 Active IV Insertion STAT Care 01/04/19 00:21 Active Pulse Oximetry (ED) STAT Care 01/04/19 00:21 Active CERVICAL SPINE WO CONTRAST [CT] Stat Exams 01/04/19 00:43 Taken HEAD WITHOUT CONTRAST [CT] Stat Exams 01/04/19 00:22 Taken CBC W DIFF Stat Lab 01/04/19 01:12 Completed CMP Stat Lab 01/04/19 01:12 Completed CULTURE,URINE Stat Lab 01/04/19 00:24 Received HCG QUALITATIVE,SERUM Stat Lab 01/04/19 01:12 Completed UA W/RFX UR CULTURE Stat Lab 01/04/19 00:24 Completed Urine Triage Profile Stat Lab 01/04/19 00:24 Completed Medication Summary Discontinued Medications Generic Name Dose Route Start Last Admin Trade Name Freq PRN Reason Stop Dose Admin Lorazepam 1 mg 01/04/19 01:05 01/04/19 01:16 Ativan 2 Mg/1 Ml Vial IV 01/04/19 01:06 1 mg STAT ONE Administration Lorazepam Confirm 01/04/19 01:15 Ativan 2 Mg/1 Ml Vial Administered 01/04/19 01:16 Dose 2 mg .ROUTE .STK-MED ONE Lab/Rad Data: Laboratory Result Diagrams 01/04/19 01:12 01/04/19 01:12 Laboratory Results 01/04/19 01/04/19 01/04/19 Range/Units 01:12 01:12 01:12 WBC (4.0-10.5) K/mm3 RBC (4.1-5.4) M/mm3 Hgb (12.0-16.0) gm/dl Hct (35-47) % MCV (78-100) fl MCH (26-32) pg MCHC (32-36) g/dl RDW (11.5-14.0) % Plt Count (150-450) K/mm3 MPV (6-9.5) fl Gran % (36.0-66.0) % Eos # (Auto) (0-0.5) Absolute Lymphs (auto) (1.0-4.6) Absolute Monos (auto) (0.0-1.3) Lymphocytes % (24.0-44.0) % Monocytes % (0.0-12.0) % Eosinophils % (0.00-5.0) % Basophils % (0.0-0.4) % Absolute Granulocytes (1.4-6.9) Basophils # (0-0.4) Sodium 141 (137-145) mmol/L Potassium 3.7 (3.5-5.1) mmol/L Chloride 111 H (98-107) mmol/L Carbon Dioxide 22 (22-30) mmol/L Anion Gap 11.0 (5-15) MEQ/L BUN 12 (7-17) mg/dL Creatinine 0.68 (0.52-1.04) mg/dL Estimated GFR > 60.0 ML/MIN Glucose 89 (74-106) mg/dL Calcium 9.0 (8.4-10.2) mg/dL Total Bilirubin 0.20 (0.2-1.3) mg/dL AST 21 (14-36) U/L ALT 16 (0-35) U/L Alkaline Phosphatase 71 (38-126) U/L Serum Total Protein 6.6 (6.3-8.2) g/dL Albumin 3.7 (3.5-5.0) g/dL Serum , Qual NEGATIVE (Negative) Urine Color (YELLOW) Urine Appearance (CLEAR) Urine pH (5-6) Ur Specific [place] (1.005-1.025) Urine Protein (Negative) Urine Ketones (NEGATIVE) Urine Blood (0-5) Carlos/ul Urine Nitrite (NEGATIVE) Urine Bilirubin (NEGATIVE) Urine Urobilinogen (0-1) mg/dL Ur Leukocyte Esterase (NEGATIVE) Urine WBC (Auto) (0-5) /HPF Urine Bacteria (Auto) (NEGATIVE) /HPF Unidentified Crystals (NEGATIVE) /HPF Other Casts (Auto) (NEGATIVE) /LPF Urine Culture Reflexed (NO) Urine Glucose (NEGATIVE) mg/dL Urine Opiates Level (NEGATIVE) Ur Methadone (NEGATIVE) Urine Barbiturates (NEGATIVE) Valproic Acid 13.8 L (50-100) ug/mL Ur Phencyclidine (PCP) (NEGATIVE) Urine Amphetamine (NEGATIVE) U Benzodiazepine Level (NEGATIVE) Urine Cocaine (NEGATIVE) Urine Marijuana (THC) (NEGATIVE) 01/04/19 01/04/19 01/04/19 Range/Units 01:12 00:24 00:24 WBC 10.8 H (4.0-10.5) K/mm3 RBC 4.10 (4.1-5.4) M/mm3 Hgb 12.7 (12.0-16.0) gm/dl Hct 37.3 (35-47) % MCV 91.0 (78-100) fl MCH 31.0 (26-32) pg MCHC 34.0 (32-36) g/dl RDW 13.2 (11.5-14.0) % Plt Count 265 (150-450) K/mm3 MPV 10.3 H (6-9.5) fl Gran % 55.7 (36.0-66.0) % Eos # (Auto) 0.18 (0-0.5) Absolute Lymphs (auto) 3.79 (1.0-4.6) Absolute Monos (auto) 0.79 (0.0-1.3) Lymphocytes % 35.0 (24.0-44.0) % Monocytes % 7.3 (0.0-12.0) % Eosinophils % 1.7 (0.00-5.0) % Basophils % 0.3 (0.0-0.4) % Absolute Granulocytes 6.04 (1.4-6.9) Basophils # 0.03 (0-0.4) Sodium (137-145) mmol/L Potassium (3.5-5.1) mmol/L Chloride (98-107) mmol/L Carbon Dioxide (22-30) mmol/L Anion Gap (5-15) MEQ/L BUN (7-17) mg/dL Creatinine (0.52-1.04) mg/dL Estimated GFR ML/MIN Glucose (74-106) mg/dL Calcium (8.4-10.2) mg/dL Total Bilirubin (0.2-1.3) mg/dL AST (14-36) U/L ALT (0-35) U/L Alkaline Phosphatase (38-126) U/L Serum Total Protein (6.3-8.2) g/dL Albumin (3.5-5.0) g/dL Serum , Qual (Negative) Urine Color JANIS (YELLOW) Urine Appearance TURBID (CLEAR) Urine pH 8.0 (5-6) Ur Specific [place] 1.015 (1.005-1.025) Urine Protein NEGATIVE (Negative) Urine Ketones NEGATIVE (NEGATIVE) Urine Blood NEGATIVE (0-5) Carlos/ul Urine Nitrite NEGATIVE (NEGATIVE) Urine Bilirubin NEGATIVE (NEGATIVE) Urine Urobilinogen NEGATIVE (0-1) mg/dL Ur Leukocyte Esterase NEGATIVE (NEGATIVE) Urine WBC (Auto) 16-25 (0-5) /HPF Urine Bacteria (Auto) MODERATE (NEGATIVE) /HPF Unidentified Crystals 25-50 (NEGATIVE) /HPF Other Casts (Auto) >50 (NEGATIVE) /LPF Urine Culture Reflexed YES (NO) Urine Glucose NEGATIVE (NEGATIVE) mg/dL Urine Opiates Level NEGATIVE (NEGATIVE) Ur Methadone NEGATIVE (NEGATIVE) Urine Barbiturates NEGATIVE (NEGATIVE) Valproic Acid (50-100) ug/mL Ur Phencyclidine (PCP) NEGATIVE (NEGATIVE) Urine Amphetamine NEGATIVE (NEGATIVE) U Benzodiazepine Level NEGATIVE (NEGATIVE) Urine Cocaine NEGATIVE (NEGATIVE) Urine Marijuana (THC) NEGATIVE (NEGATIVE) - Progress Progress: improved, re-examined Progress Note: 01/04/19 03:45 ct head and cervical spine negative for acute process. Counseled pt/family regarding: lab results, diagnosis, need for follow-up, rad results - Departure Departure Disposition: Home Clinical Impression: Seizure, Serum medication level outside reference range, UTI (urinary tract infection) Condition: Stable Critical Care Time: No Referrals: [facility] [Primary Care Provider] - Additional Instructions: take medication as prescribed. follow up with neurologist today to discuss new dosing regimen if indicated. Prescriptions: Ciprofloxacin [Cipro 500 MG] 500 mg PO BID #14 tablet
[2019-01-04] MEDS ORDERED: Ativan 2 MG/1 ML VIAL IV ONE (01:05)
[2019-01-04 01:10] LABS: Amphetamine,Urine NEGATIVE (NEGATIVE); Barbiturate,Urine NEGATIVE (NEGATIVE); Benzodiazepine,Urine NEGATIVE (NEGATIVE); Cocaine,Urine NEGATIVE (NEGATIVE); Methadone,Urine NEGATIVE (NEGATIVE); Opiate,Urine NEGATIVE (NEGATIVE); PCP,Urine NEGATIVE (NEGATIVE); THC,Urine NEGATIVE (NEGATIVE)
[2019-01-04] MEDS ORDERED: Ativan 2 MG/1 ML VIAL ONE (01:15)
[2019-01-04 01:23] VITALS: PULSE 79
[2019-01-04 01:25] LABS: BASOPHIL % 0.3 % (0.0-0.4); Basophil (Absolute #) 0.03 (0-0.4); Eosinophil % 1.7 % (0.00-5.0); Eosinophil (Absolute #) 0.18 (0-0.5); Granulocyte Absolute (ANC) 6.04 (1.4-6.9); Granulocytes % 55.7 % (36.0-66.0); Hematocrit 37.3 % (35-47); Hemoglobin 12.7 gm/dl (12.0-16.0); Lymphocyte (Absolute #) 3.79 (1.0-4.6); Mean Platelet Volume 10.3 fl (6-9.5); Monocyte (Absolute #) 0.79 (0.0-1.3); Monocytes % 7.3 % (0.0-12.0); Platelet Count 265 K/mm3 (150-450); Red Cell Distribution Width 13.2 % (11.5-14.0); White Blood Count 10.8 K/mm3 (4.0-10.5)
[2019-01-04 01:37] LABS: ALBUMIN 3.7 g/dL (3.5-5.0); ALKALINE PHOSPHATASE 71 U/L (38-126); BLOOD UREA NITROGEN 12 mg/dL (7-17); CHLORIDE 111 mmol/L (98-107); Carbon Dioxide 22 mmol/L (22-30); Creatinine 1 0.68 mg/dL (0.52-1.04); Glucose 89 mg/dL (74-106); Potassium 3.7 mmol/L (3.5-5.1); SGOT/AST 21 U/L (14-36); SGPT/ALT 16 U/L (0-35); SODIUM 141 mmol/L (137-145); Total Protein 6.6 g/dL (6.3-8.2)
[2019-01-04 02:04] LABS: Appearance TURBID (CLEAR); Bacteria MODERATE /HPF (NEGATIVE); Bilirubin NEGATIVE (NEGATIVE); Blood NEGATIVE Ery/ul (0-5); Crystals Unidentified 25-50 /HPF (NEGATIVE); Glucose NEGATIVE (NEGATIVE); Ketones NEGATIVE (NEGATIVE); Leukocyte Esterase NEGATIVE (NEGATIVE); Nitrite NEGATIVE (NEGATIVE); Protein,Urine Dip NEGATIVE (Negative); Specific Gravity 1.015 (1.005-1.025); Urobilinogen NEGATIVE mg/dL (0-1)
[2019-01-04 03:19] VITALS: BP 106/79; O2SAT 96
[2019-01-04] MEDS ORDERED: Cipro 500 MG PO ONE (03:49)
[2019-01-04] MEDS ORDERED: Cipro 500 MG ONE (03:59)
--- NOTE | 2019-01-04 09:00 | XRAY ---
Indication: Head injury following fall/seizure. Headache. Multiple contiguous axial images obtained through the head without contrast. Comparison: May 17, 2017. Again normal appearing brain parenchyma, ventricles, and bony calvarium. Visualized paranasal sinuses and mastoid air cells are clear. Impression: Normal CT head without contrast exam. Comment: Preliminary interpretation was made by [facility]. No discrepancy. CTDI 51.62
--- NOTE | 2019-01-04 09:02 | XRAY ---
Indication: Neck injury following fall/seizure. Headache. Multiple contiguous axial images obtained through the cervical spine. Sagittal and coronal reformatted images obtained. Comparison: August 28, 2016. Axial images again negative for acute fracture, suspicious bony lesions, or spinal canal stenosis. Sagittal and coronal reformatted images again demonstrates mild lordotic reversal, positional versus paraspinal spasm. Vertebral body heights/disc spaces maintained. No acute compression fracture, subluxation, or jumped facet. Normal appearing craniocervical junction. Visualized noncontrasted soft tissues including lung apices are unremarkable. Impression: Again lordotic reversal, positional versus paraspinal spasm. Remaining CT cervical spine is negative. Comment: Preliminary interpretation was made by [facility]. No discrepancy. CTDI 64.60
== END 2019-01-04 04:11 | disposition home or self-care (01) ==
LOC: ED 00:04
DX: G40.909 Epilepsy, unspecified, not intractable, without status epilepticus (principal); R89.2 Abnormal level of other drugs, medicaments and biological substances in specimens from other organs, systems and tissues; N39.0 Urinary tract infection, site not specified
CPT/HCPCS: 36000; 36415; 70450; 72125; 80053; 80164; 80307; 81001; 81025; 85025; 87086; 93041; 94760; 96374; 99284; J2060; A9270-GY

== ENCOUNTER 2021-07-02 10:09 | Day surgery (SDC) | payer OTHER ==
[2021-07-02] MEDS ORDERED: VIBRAMYCIN 100 MG*** 100 MG in Dextrose 5%/Water IV Soln. 100ML PLUS BAG 100 ML IV SCH (10:30)
[2021-07-02] MEDS ORDERED: Lactated Ringers 1,000 ML IV SCH (10:30)
[2021-07-02] MEDS ORDERED: Xylocaine-Mpf 2% 5 Ml Vial ONE (10:34)
[2021-07-02] MEDS ORDERED: SUBLIMAZE 100 MCG/2 ML ONE ×2 (10:34→12:00)
[2021-07-02] MEDS ORDERED: Versed 2 MG/2 ML Injection ONE (10:34)
[2021-07-02] MEDS ORDERED: Zofran 4 MG/2 ML VIAL ONE (10:34)
[2021-07-02] MEDS ORDERED: Decadron 4 MG INJ ONE (10:34)
[2021-07-02] MEDS ORDERED: DIPRIVAN 200 MG/20 ML IV ONE (10:34)
[2021-07-02] MEDS ORDERED: ARZOL Silver Nitrate Applicator TP ONE (11:34)
[2021-07-02] MEDS ORDERED: Compazine 10 MG/2 ML ONE (12:00)
[2021-07-02] MEDS ORDERED: Hydromorphone 1 mg/ml Injection ONE (12:05)
[2021-07-02] MEDS ORDERED: Lactated Ringers 1,000 ML IV ONE (12:06)
[2021-07-02] MEDS ORDERED: OXYCODONE-ACETAMINOPHEN 10-325 PO ONE (13:10)
[2021-07-02] MEDS ORDERED: OXYCODONE-ACETAMINOPHEN 10-325 ONE (13:12)
[2021-07-02 13:17] VITALS: BP 138/88; O2SAT 94
[2021-07-02 13:41] VITALS: PULSE 74
--- NOTE | 2021-07-03 08:46 | OP ---
SURGERY DATE/TIME: 07/02/2021 1103 PREOPERATIVE DIAGNOSIS: Menorrhagia and dysmenorrhea. POSTOPERATIVE DIAGNOSIS: Menorrhagia and dysmenorrhea. PROCEDURE: Hysteroscopy D&C with NovaSure ablation. SURGEON: Neel Mojica D.O. 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 ANESTHESIA: General. ESTIMATED BLOOD LOSS: Minimal. COMPLICATIONS: None. INDICATIONS: The risks, benefits, indications and alternatives of the procedure were reviewed with the patient prior to the procedure. The patient understood the risk of infection, bleeding, bowel injury, bladder injury, ureteral injury, uterine perforation associated with the surgery and desires to have the surgery as a possible means to alleviate her current medical condition. DESCRIPTION OF PROCEDURE AND FINDINGS: At this point, the patient is taken to the operating room, given general sedation, placed in dorsal lithotomy position, prepped and draped in the usual sterile fashion. A weighted speculum is then placed in the patient's vagina and the anterior lip of the cervix is grasped with a single tooth tenaculum. Endocervical dilators were advanced through the endocervical canal as a means to dilate the cervix and the uterus is sounded to approximately 12 to 13 cm. At this point, a 5 mm hysteroscope was then placed through the endocervical region towards the fundal portion of the uterus where visualization revealed no gross abnormalities. The hysteroscope was then removed and the curette was then placed into the fundus of the uterus where curettage was performed in all quadrants of the uterus retrieving a moderate amount of tissue. There was hemostasis that was noted at this time. From this point the NovaSure was then taken and was applied with a 6.5 cm length and was taken to the fundal region retracted approximately 1 to 2 cm where it was engaged and the machine was turned on for an ablative time of 45 seconds where the width was 4.5 cm. After complete ablation the instrument was then disengaged from the uterine cavity and removed from the uterine cavity without complication. From this point, all instruments were removed from the patient's vaginal region. The patient was then out of the dorsal lithotomy position, was taken out of anesthesia and was then taken to the recovery room in stable condition. All instruments and laps were accounted for x2.
== END 2021-07-02 13:40 | disposition home or self-care (01) ==
LOC: SDC 10:09
PROVIDERS: ATTEND Obstetrics & Gynecology
DX: N92.0 Excessive and frequent menstruation with regular cycle (principal); N94.6 Dysmenorrhea, unspecified
CPT/HCPCS: 84703; J1100; J1170; J2250; J2405; J2704; J3010; A9270-GY

== ENCOUNTER 2023-03-10 07:04 | Observation (INO) | payer OTHER ==
[2023-03-10] MEDS: Lactated Ringers 1,000 ML IV SCH ×2 (07:28→20:44)
[2023-03-10] MEDS ORDERED: CLINDAMYCIN-D5W 900 MG/50 ML*** 900 MG/50 ML BAG IV SCH (07:30)
[2023-03-10 07:55] LABS: Absolute Neutrophil Ct (ANC) 4.51 x10^3/uL (1.4-6.9); BASOPHIL % 0.1 % (0.0-0.4); Basophil (Absolute #) 0.01 x10^3/uL (0-0.4); Eosinophil % 1.2 % (0.00-5.0); Hemoglobin 12.9 g/dL (12.0-16.0); IMMATURE GRAN # 0.03 x10^3u/L (0.00-0.03); IMMATURE GRAN % 0.4 % (0.00-0.4); Lymphocyte (Absolute #) 2.97 x10^3/uL (1.0-4.6); Mean Cell Volume 94.9 fL (78-100); Mean Corpuscular Hemoglobin 31.4 pg (26-32); Mean Corpuscular Hgb Concent. 33.1 g/dL (32-36); Mean Platelet Volume 10.4 fL (7.5-11.0); Monocyte (Absolute #) 0.64 x10^3/uL (0.0-1.3); Monocytes % 7.7 % (0.0-12.0); Neutrophil % 54.6 % (36.0-66.0); Platelet Count 227 x10^3/uL (150-450); Red Blood Count 4.11 x10^6/uL (4.1-5.4); Red Cell Distribution Width 12.7 % (11.5-14.0); White Blood Count 8.3 x10^3/uL (4.0-10.5)
[2023-03-10 08:07] LABS: ANION GAP 12.5 MEQ/L (5-15); BILIRUBIN,TOTAL 0.3 mg/dL (0.2-1.3); Calcium 8.4 mg/dL (8.4-10.2); Creatinine 1 0.83 mg/dL (0.52-1.04); EST GLOMERULAR FILTRATION RATE 94.2 ML/MIN; Potassium 4.3 mmol/L (3.5-5.1); Total Protein 6.7 g/dL (6.3-8.2)
[2023-03-10] MEDS ORDERED: Transderm Scop 1.5MG Patch TOP ONE (08:26)
[2023-03-10] MEDS ORDERED: Transderm Scop 1.5MG Patch ONE (08:28)
[2023-03-10 08:31] LABS: ABO TYPING O; Antibody Screen NEGATIVE (NEGATIVE); RH TYPING POSITIVE
[2023-03-10] MEDS ORDERED: DIPRIVAN 200 MG/20 ML IV ONE (09:05)
[2023-03-10] MEDS ORDERED: Zemuron 100 MG/10 ML ONE (09:05)
[2023-03-10] MEDS ORDERED: Zofran 4 MG/2 ML VIAL ONE (09:05)
[2023-03-10] MEDS ORDERED: Decadron 4 MG INJ ONE ×2 (09:05→10:22)
[2023-03-10] MEDS ORDERED: Xylocaine-Mpf 2% 5 Ml Vial ONE (09:05)
[2023-03-10] MEDS ORDERED: SUBLIMAZE 250 MCG/5 ML ONE (09:06)
[2023-03-10] MEDS ORDERED: Astramorph-Pf 5 MG/10 ML ONE (09:06)
[2023-03-10] MEDS ORDERED: Versed 2 MG/2 ML Injection ONE (09:06)
[2023-03-10] MEDS ORDERED: DEXMEDETOMIDINE 80 MCG/20ML-NS IV ONE (10:23)
[2023-03-10] MEDS ORDERED: Marcaine 0.5%/Epinephrine 10 ML ONE (10:27)
[2023-03-10] MEDS ORDERED: BRIDION 200MG/2ML IV ONE (10:28)
[2023-03-10] MEDS ORDERED: TORAdol 30 mg Injection ONE (10:28)
[2023-03-10] MEDS ORDERED: Lactated Ringers 1,000 ML IV ONE (10:35)
[2023-03-10] MEDS ORDERED: SUBLIMAZE 100 MCG/2 ML ONE (11:50)
[2023-03-10] MEDS ORDERED: BENADRYL 50 MG/ML IV PRN (12:00)
[2023-03-10] MEDS ORDERED: Sodium Chloride 0.9% 10 ML FLUSH Syringe IJ PRN (12:00)
[2023-03-10] MEDS ORDERED: DEMEROL 50 MG IV PRN (12:00)
[2023-03-10] MEDS ORDERED: CLARITIN 10 MG PO PRN (12:00)
[2023-03-10] MEDS ORDERED: Narcan 0.4 MG/ML IV PRN (12:00)
[2023-03-10] MEDS ORDERED: Nubain 10 MG/ML IV PRN (12:00)
[2023-03-10] MEDS ORDERED: Zofran 4 MG/2 ML VIAL IV PRN ×2 (12:00→13:43)
[2023-03-10] MEDS ORDERED: MORPHINE SULFATE 2 MG INJ IV PRN (12:00)
[2023-03-10 12:42] LABS: HCG URINE TEST NEGATIVE (NEGATIVE)
[2023-03-10 12:46] LABS: Appearance Clear (Clear); Bacteria None Seen /HPF (None Seen); Bilirubin Negative (Negative); Blood Negative (Negative); Epithelial Cells Few /HPF (None Seen); Glucose, Urine Negative (Negative); Hyaline Casts NONE SEEN /LPF (0-2); Ketones 15 (Negative); Leukocyte Esterase Negative (Negative); Nitrite Negative (Negative); Protein,Urine Dip Negative (Negative); RBC 0-2 /HPF (0-5); Urobilinogen 0.2 mg/dL (0.2)
[2023-03-10] MEDS ORDERED: TORAdol 30 mg Injection IV PRN (13:45)
[2023-03-10] MEDS: PERCOCET TABLET 5/325MG PO PRN ×2 (14:49→21:54)
[2023-03-10] MEDS: Mylicon 80MG PO SCH ×2 (14:49→21:54)
[2023-03-10] MEDS: Reglan 10 MG/2 ML IV SCH ×2 (14:50→21:55)
[2023-03-10] MEDS: CLINDAMYCIN-D5W 900 MG/50 ML*** 900 MG/50 ML BAG IV SCH ×2 (16:31→23:22)
[2023-03-10 18:06] LABS: Hematocrit 37.6 % (35-47); Hemoglobin 12.3 g/dL (12.0-16.0); Mean Cell Volume 96.4 fL (78-100); Mean Corpuscular Hemoglobin 31.5 pg (26-32); Mean Corpuscular Hgb Concent. 32.7 g/dL (32-36); Mean Platelet Volume 10.3 fL (7.5-11.0); Platelet Count 238 x10^3/uL (150-450); Red Cell Distribution Width 12.7 % (11.5-14.0); White Blood Count 14.2 x10^3/uL (4.0-10.5)
[2023-03-10] MEDS: Docusate Sodium 100 MG PO SCH (21:54)
[2023-03-10] MEDS ORDERED: lamICTAL 100MG TABLET PO SCH (22:00)
[2023-03-10] MEDS ORDERED: TOPIRAMATE PO SCH (22:00)
[2023-03-10] MEDS ORDERED: CLARITIN 10 MG PO SCH (22:00)
[2023-03-11] MEDS: Lactated Ringers 1,000 ML IV SCH (04:46)
[2023-03-11] MEDS: PERCOCET TABLET 5/325MG PO PRN ×2 (04:47→09:50)
[2023-03-11] MEDS: Mylicon 80MG PO SCH (04:47)
[2023-03-11] MEDS: Reglan 10 MG/2 ML IV SCH (04:47)
[2023-03-11 05:20] LABS: Hemoglobin 11.5 g/dL (12.0-16.0); Mean Cell Volume 94.6 fL (78-100); Mean Corpuscular Hemoglobin 31.1 pg (26-32); Mean Corpuscular Hgb Concent. 32.9 g/dL (32-36); Mean Platelet Volume 10.6 fL (7.5-11.0); Platelet Count 248 x10^3/uL (150-450); Red Cell Distribution Width 12.9 % (11.5-14.0); White Blood Count 17.5 x10^3/uL (4.0-10.5)
[2023-03-11 05:34] LABS: ALBUMIN 3.5 g/dL (3.5-5.0); ANION GAP 14.3 MEQ/L (5-15); BILIRUBIN,TOTAL 0.2 mg/dL (0.2-1.3); Calcium 8.3 mg/dL (8.4-10.2); Creatinine 1 0.7 mg/dL (0.52-1.04); EST GLOMERULAR FILTRATION RATE 115.6 ML/MIN; Potassium 3.9 mmol/L (3.5-5.1); Total Protein 6.1 g/dL (6.3-8.2)
[2023-03-11 07:19] VITALS: RESP 16; TEMP 97.5
--- NOTE | 2023-03-11 08:00 | PCM.NOTE ---
Date and Time: 03/11/23 0753 Subjective Assessment: pod 1 pt resting in bed able to ambulate and tolerate diet vss afebrile abd; soft incision c/d/intact nondistended ext; no clubbing cyanosis or edema hgb; 11.5 a/p sp laparotomy supracervical hysterectomy b/l salpingectomy left ovarian cystectomy dc home today should fu office next thursday Objective Exam Wound Assessment: Skin/Wound Assessment Wound/Incision Assessment Start: 03/10/23 19:42 Text: Status: Active Freq: Q4H Protocol: Document 03/11/23 03:34 (Rec: 03/11/23 03:35 [id number]) Wound/Incision Assessment Lower Abdomen Wound Assessment Shift Assessment Wound Type Incision Drainage Amount None Drainage Odor None/Absent General Appearance Well Approximated Comment wound open to air. Wound Photo Photo Taken No OBJECTIVE DATA Vital Signs: Vital Signs - 24 hr Temp Pulse Resp BP Pulse Ox 03/11/23 07:18 97.5 F 78 16 100/54 95 03/11/23 06:54 96 03/11/23 06:30 18 03/11/23 04:00 97.1 F 69 18 95/53 94 L 03/11/23 02:41 18 03/10/23 23:30 97.7 F 59 L 18 92/55 03/10/23 22:19 20 03/10/23 19:48 20 03/10/23 19:38 98.4 F 71 20 100/57 96 03/10/23 19:01 95 03/10/23 16:00 97.6 F 85 16 104/59 94 L 03/10/23 14:52 98.7 F 86 16 107/60 95 03/10/23 14:30 98.7 F 80 16 108/58 95 03/10/23 14:00 98.7 F 81 18 109/60 95 03/10/23 13:19 98.7 F 80 18 99/59 98 03/10/23 13:11 96 03/10/23 13:01 97.6 F 84 18 99/57 94 L 03/10/23 13:00 98.7 F 86 16 107/60 95 03/10/23 08:07 97.5 F 88 18 110/82 96 03/10/23 07:54 97.5 F 88 18 110/82 96 Pain Assessment - Last Documented Pain Intensity 5 Pain Scale Used 0-10 Pain Scale Intake and Output: Intake & Output 03/08/23 03/09/23 03/10/23 03/11/23 11:59 11:59 11:59 11:59 Intake Total 1846 Output Total 900 Balance 946 Weight 76 kg 76 kg Lab Results: Lab Results-Last 24 Hours 03/10/23 03/10/23 03/10/23 Range/Units 07:24 07:35 07:35 WBC 8.3 (4.0-10.5) x10^3/uL RBC 4.11 (4.1-5.4) x10^6/uL Hgb 12.9 (12.0-16.0) g/dL Hct 39.0 (35-47) % MCV 94.9 (78-100) fL MCH 31.4 (26-32) pg MCHC 33.1 (32-36) g/dL RDW 12.7 (11.5-14.0) % Plt Count 227 (150-450) x10^3/uL MPV 10.4 (7.5-11.0) fL Gran % 54.6 (36.0-66.0) % Immature Gran % (Auto) 0.4 (0.00-0.4) % Nucleat RBC Rel Count 0.0 (0.00-0.1) % Eos # (Auto) 0.10 (0-0.5) x10^3/uL Immature Gran # (Auto) 0.03 (0.00-0.03) x10^3u/L Absolute Lymphs (auto) 2.97 (1.0-4.6) x10^3/uL Absolute Monos (auto) 0.64 (0.0-1.3) x10^3/uL Absolute Nucleated RBC 0.00 (0.00-0.01) x10^3u/L Lymphocytes % 36.0 (24.0-44.0) % Monocytes % 7.7 (0.0-12.0) % Eosinophils % 1.2 (0.00-5.0) % Basophils % 0.1 (0.0-0.4) % Absolute Granulocytes 4.51 (1.4-6.9) x10^3/uL Basophils # 0.01 (0-0.4) x10^3/uL Sodium 138 (137-145) mmol/L Potassium 4.3 (3.5-5.1) mmol/L Chloride 110 H (98-107) mmol/L Carbon Dioxide 20 L (22-30) mmol/L Anion Gap 12.5 (5-15) MEQ/L BUN 12 (7-17) mg/dL Creatinine 0.83 (0.52-1.04) mg/dL Estimated GFR 94.2 ML/MIN Glucose 92 (74-106) mg/dL Calcium 8.4 (8.4-10.2) mg/dL Total Bilirubin 0.30 (0.2-1.3) mg/dL AST 20 (14-36) U/L ALT 15 (0-35) U/L Alkaline Phosphatase 63 (38-126) U/L Serum Total Protein 6.7 (6.3-8.2) g/dL Albumin 4.0 (3.5-5.0) g/dL Urine Color (Yellow) Urine Appearance (Clear) Urine pH (4.6-8.0) Ur Specific [place] (1.005-1.030) Urine Protein (Negative) Urine Glucose (UA) (Negative) mg/dL Urine Ketones (Negative) Urine Blood (Negative) Urine Nitrite (Negative) Urine Bilirubin (Negative) Urine Urobilinogen (0.2) mg/dL Ur Leukocyte Esterase (Negative) U Hyaline Cast (Auto) (0-2) /LPF Urine Microscopic RBC (0-5) /HPF Urine Microscopic WBC (0-5) /HPF Ur Epithelial Cells (None Seen) /HPF Urine Bacteria (None Seen) /HPF Urine HCG, Qual NEGATIVE (NEGATIVE) ABO Group Rh Factor Antibody Screen (NEGATIVE) 03/10/23 03/10/23 03/10/23 Range/Units 07:35 09:40 18:01 WBC 14.2 H (4.0-10.5) x10^3/uL RBC 3.90 L (4.1-5.4) x10^6/uL Hgb 12.3 (12.0-16.0) g/dL Hct 37.6 (35-47) % MCV 96.4 (78-100) fL MCH 31.5 (26-32) pg MCHC 32.7 (32-36) g/dL RDW 12.7 (11.5-14.0) % Plt Count 238 (150-450) x10^3/uL MPV 10.3 (7.5-11.0) fL Gran % (36.0-66.0) % Immature Gran % (Auto) (0.00-0.4) % Nucleat RBC Rel Count (0.00-0.1) % Eos # (Auto) (0-0.5) x10^3/uL Immature Gran # (Auto) (0.00-0.03) x10^3u/L Absolute Lymphs (auto) (1.0-4.6) x10^3/uL Absolute Monos (auto) (0.0-1.3) x10^3/uL Absolute Nucleated RBC (0.00-0.01) x10^3u/L Lymphocytes % (24.0-44.0) % Monocytes % (0.0-12.0) % Eosinophils % (0.00-5.0) % Basophils % (0.0-0.4) % Absolute Granulocytes (1.4-6.9) x10^3/uL Basophils # (0-0.4) x10^3/uL Sodium (137-145) mmol/L Potassium (3.5-5.1) mmol/L Chloride (98-107) mmol/L Carbon Dioxide (22-30) mmol/L Anion Gap (5-15) MEQ/L BUN (7-17) mg/dL Creatinine (0.52-1.04) mg/dL Estimated GFR ML/MIN Glucose (74-106) mg/dL Calcium (8.4-10.2) mg/dL Total Bilirubin (0.2-1.3) mg/dL AST (14-36) U/L ALT (0-35) U/L Alkaline Phosphatase (38-126) U/L Serum Total Protein (6.3-8.2) g/dL Albumin (3.5-5.0) g/dL Urine Color Yellow (Yellow) Urine Appearance Clear (Clear) Urine pH 7.0 (4.6-8.0) Ur Specific [place] 1.020 (1.005-1.030) Urine Protein Negative (Negative) Urine Glucose (UA) Negative (Negative) mg/dL Urine Ketones 15 A (Negative) Urine Blood Negative (Negative) Urine Nitrite Negative (Negative) Urine Bilirubin Negative (Negative) Urine Urobilinogen 0.2 (0.2) mg/dL Ur Leukocyte Esterase Negative (Negative) U Hyaline Cast (Auto) NONE SEEN (0-2) /LPF Urine Microscopic RBC 0-2 (0-5) /HPF Urine Microscopic WBC 3-5 (0-5) /HPF Ur Epithelial Cells Few (None Seen) /HPF Urine Bacteria None Seen (None Seen) /HPF Urine HCG, Qual (NEGATIVE) ABO Group O Rh Factor POSITIVE Antibody Screen NEGATIVE (NEGATIVE) 03/11/23 03/11/23 Range/Units 04:57 04:57 WBC 17.5 H (4.0-10.5) x10^3/uL RBC 3.70 L (4.1-5.4) x10^6/uL Hgb 11.5 L (12.0-16.0) g/dL Hct 35.0 (35-47) % MCV 94.6 (78-100) fL MCH 31.1 (26-32) pg MCHC 32.9 (32-36) g/dL RDW 12.9 (11.5-14.0) % Plt Count 248 (150-450) x10^3/uL MPV 10.6 (7.5-11.0) fL Gran % (36.0-66.0) % Immature Gran % (Auto) (0.00-0.4) % Nucleat RBC Rel Count (0.00-0.1) % Eos # (Auto) (0-0.5) x10^3/uL Immature Gran # (Auto) (0.00-0.03) x10^3u/L Absolute Lymphs (auto) (1.0-4.6) x10^3/uL Absolute Monos (auto) (0.0-1.3) x10^3/uL Absolute Nucleated RBC (0.00-0.01) x10^3u/L Lymphocytes % (24.0-44.0) % Monocytes % (0.0-12.0) % Eosinophils % (0.00-5.0) % Basophils % (0.0-0.4) % Absolute Granulocytes (1.4-6.9) x10^3/uL Basophils # (0-0.4) x10^3/uL Sodium 134 L (137-145) mmol/L Potassium 3.9 (3.5-5.1) mmol/L Chloride 108 H (98-107) mmol/L Carbon Dioxide 17 L (22-30) mmol/L Anion Gap 14.3 (5-15) MEQ/L BUN 10 (7-17) mg/dL Creatinine 0.70 (0.52-1.04) mg/dL Estimated GFR 115.6 ML/MIN Glucose 100 (74-106) mg/dL Calcium 8.3 L (8.4-10.2) mg/dL Total Bilirubin 0.20 (0.2-1.3) mg/dL AST 24 (14-36) U/L ALT 17 (0-35) U/L Alkaline Phosphatase 67 (38-126) U/L Serum Total Protein 6.1 L (6.3-8.2) g/dL Albumin 3.5 (3.5-5.0) g/dL Urine Color (Yellow) Urine Appearance (Clear) Urine pH (4.6-8.0) Ur Specific [place] (1.005-1.030) Urine Protein (Negative) Urine Glucose (UA) (Negative) mg/dL Urine Ketones (Negative) Urine Blood (Negative) Urine Nitrite (Negative) Urine Bilirubin (Negative) Urine Urobilinogen (0.2) mg/dL Ur Leukocyte Esterase (Negative) U Hyaline Cast (Auto) (0-2) /LPF Urine Microscopic RBC (0-5) /HPF Urine Microscopic WBC (0-5) /HPF Ur Epithelial Cells (None Seen) /HPF Urine Bacteria (None Seen) /HPF Urine HCG, Qual (NEGATIVE) ABO Group Rh Factor Antibody Screen (NEGATIVE) Assessment/Plan (1) S/P abdominal supracervical subtotal hysterectomy Current Visit: Yes Status: Acute Code(s): Z90.711 - ACQUIRED ABSENCE OF UTERUS WITH REMAINING CERVICAL STUMP (2) S/P ovarian cystectomy Current Visit: Yes Status: Acute Code(s): Z98.890 - OTHER SPECIFIED POSTPROCEDURAL STATES; Z87.42 - PERSONAL HISTORY OF OTH DISEASES OF THE FEMALE GENITAL TRACT (3) Status post bilateral salpingectomy Current Visit: Yes Status: Acute Code(s): Z90.79 - ACQUIRED ABSENCE OF OTHER GENITAL ORGAN(S)
--- NOTE | 2023-03-11 08:06 | PCM.DS ---
Discharge Summary Date of Admission: 03/10/23 07:04 Admitting Physician: SIDNEY BANERJEE DO Primary Care Provider: TORI SOUTH Allergies Allergies cephalexin monohydrate [From Keflex] Adverse Reaction (Verified 03/10/23 07:24) Vomiting Cephalosporins Adverse Reaction (Verified 03/10/23 07:24) Vomiting sulfamethoxazole [From Bactrim] Adverse Reaction (Verified 03/10/23 07:24) Vomiting tramadol Adverse Reaction (Verified 03/10/23 19:11) trimethoprim [From Bactrim] Adverse Reaction (Verified 03/10/23 07:24) Vomiting Hospital Summary - Hospital Course Hospital Course: pt admitted on mar 10 for undergoing laparotomy supracervical hysterectomy b/l salpingectomy left ovarian cystectomy secondary to severe dysmenorrhea and menorrhagia with failed ablation and underwent procedure without complication. during postop period did well with stable hgb at 11.5 and normal cr level. pt was able to ambulate and tolerate diet and was able to pass flatus prior to discharge. pt was given instructions to fu in office next thursday for postop check. pt was given percocet for pain management and clindamycin for prophylaxis. incision c/d/intact prior to being discharged. all questions answered to her satisfaction prior to discharge. - Vitals & Intake/Output Vital Signs: Vital Signs Temperature 97.5 F 03/11/23 07:18 Pulse Rate 78 03/11/23 07:18 Respiratory Rate 16 03/11/23 07:18 Blood Pressure 100/54 03/11/23 07:18 O2 Sat by Pulse Oximetry 95 03/11/23 07:18 Intake & Output: Intake & Output 03/08/23 03/09/23 03/10/23 03/11/23 11:59 11:59 11:59 11:59 Intake Total 1846 Output Total 900 Balance 946 Weight 76 kg 76 kg - Lab Result Diagrams: 03/11/23 04:57 03/11/23 04:57 Lab Results-Last 24 Hrs: Lab Results-Last 24 Hours 03/10/23 03/10/23 03/10/23 Range/Units 07:24 07:35 07:35 WBC (4.0-10.5) x10^3/uL RBC (4.1-5.4) x10^6/uL Hgb (12.0-16.0) g/dL Hct (35-47) % MCV (78-100) fL MCH (26-32) pg MCHC (32-36) g/dL RDW (11.5-14.0) % Plt Count (150-450) x10^3/uL MPV (7.5-11.0) fL Sodium 138 (137-145) mmol/L Potassium 4.3 (3.5-5.1) mmol/L Chloride 110 H (98-107) mmol/L Carbon Dioxide 20 L (22-30) mmol/L Anion Gap 12.5 (5-15) MEQ/L BUN 12 (7-17) mg/dL Creatinine 0.83 (0.52-1.04) mg/dL Estimated GFR 94.2 ML/MIN Glucose 92 (74-106) mg/dL Calcium 8.4 (8.4-10.2) mg/dL Total Bilirubin 0.30 (0.2-1.3) mg/dL AST 20 (14-36) U/L ALT 15 (0-35) U/L Alkaline Phosphatase 63 (38-126) U/L Serum Total Protein 6.7 (6.3-8.2) g/dL Albumin 4.0 (3.5-5.0) g/dL Urine Color (Yellow) Urine Appearance (Clear) Urine pH (4.6-8.0) Ur Specific [place] (1.005-1.030) Urine Protein (Negative) Urine Glucose (UA) (Negative) mg/dL Urine Ketones (Negative) Urine Blood (Negative) Urine Nitrite (Negative) Urine Bilirubin (Negative) Urine Urobilinogen (0.2) mg/dL Ur Leukocyte Esterase (Negative) U Hyaline Cast (Auto) (0-2) /LPF Urine Microscopic RBC (0-5) /HPF Urine Microscopic WBC (0-5) /HPF Ur Epithelial Cells (None Seen) /HPF Urine Bacteria (None Seen) /HPF Urine HCG, Qual NEGATIVE (NEGATIVE) ABO Group O Rh Factor POSITIVE Antibody Screen NEGATIVE (NEGATIVE) 03/10/23 03/10/23 03/11/23 Range/Units 09:40 18:01 04:57 WBC 14.2 H 17.5 H (4.0-10.5) x10^3/uL RBC 3.90 L 3.70 L (4.1-5.4) x10^6/uL Hgb 12.3 11.5 L (12.0-16.0) g/dL Hct 37.6 35.0 (35-47) % MCV 96.4 94.6 (78-100) fL MCH 31.5 31.1 (26-32) pg MCHC 32.7 32.9 (32-36) g/dL RDW 12.7 12.9 (11.5-14.0) % Plt Count 238 248 (150-450) x10^3/uL MPV 10.3 10.6 (7.5-11.0) fL Sodium (137-145) mmol/L Potassium (3.5-5.1) mmol/L Chloride (98-107) mmol/L Carbon Dioxide (22-30) mmol/L Anion Gap (5-15) MEQ/L BUN (7-17) mg/dL Creatinine (0.52-1.04) mg/dL Estimated GFR ML/MIN Glucose (74-106) mg/dL Calcium (8.4-10.2) mg/dL Total Bilirubin (0.2-1.3) mg/dL AST (14-36) U/L ALT (0-35) U/L Alkaline Phosphatase (38-126) U/L Serum Total Protein (6.3-8.2) g/dL Albumin (3.5-5.0) g/dL Urine Color Yellow (Yellow) Urine Appearance Clear (Clear) Urine pH 7.0 (4.6-8.0) Ur Specific [place] 1.020 (1.005-1.030) Urine Protein Negative (Negative) Urine Glucose (UA) Negative (Negative) mg/dL Urine Ketones 15 A (Negative) Urine Blood Negative (Negative) Urine Nitrite Negative (Negative) Urine Bilirubin Negative (Negative) Urine Urobilinogen 0.2 (0.2) mg/dL Ur Leukocyte Esterase Negative (Negative) U Hyaline Cast (Auto) NONE SEEN (0-2) /LPF Urine Microscopic RBC 0-2 (0-5) /HPF Urine Microscopic WBC 3-5 (0-5) /HPF Ur Epithelial Cells Few (None Seen) /HPF Urine Bacteria None Seen (None Seen) /HPF Urine HCG, Qual (NEGATIVE) ABO Group Rh Factor Antibody Screen (NEGATIVE) 03/11/23 Range/Units 04:57 WBC (4.0-10.5) x10^3/uL RBC (4.1-5.4) x10^6/uL Hgb (12.0-16.0) g/dL Hct (35-47) % MCV (78-100) fL MCH (26-32) pg MCHC (32-36) g/dL RDW (11.5-14.0) % Plt Count (150-450) x10^3/uL MPV (7.5-11.0) fL Sodium 134 L (137-145) mmol/L Potassium 3.9 (3.5-5.1) mmol/L Chloride 108 H (98-107) mmol/L Carbon Dioxide 17 L (22-30) mmol/L Anion Gap 14.3 (5-15) MEQ/L BUN 10 (7-17) mg/dL Creatinine 0.70 (0.52-1.04) mg/dL Estimated GFR 115.6 ML/MIN Glucose 100 (74-106) mg/dL Calcium 8.3 L (8.4-10.2) mg/dL Total Bilirubin 0.20 (0.2-1.3) mg/dL AST 24 (14-36) U/L ALT 17 (0-35) U/L Alkaline Phosphatase 67 (38-126) U/L Serum Total Protein 6.1 L (6.3-8.2) g/dL Albumin 3.5 (3.5-5.0) g/dL Urine Color (Yellow) Urine Appearance (Clear) Urine pH (4.6-8.0) Ur Specific [place] (1.005-1.030) Urine Protein (Negative) Urine Glucose (UA) (Negative) mg/dL Urine Ketones (Negative) Urine Blood (Negative) Urine Nitrite (Negative) Urine Bilirubin (Negative) Urine Urobilinogen (0.2) mg/dL Ur Leukocyte Esterase (Negative) U Hyaline Cast (Auto) (0-2) /LPF Urine Microscopic RBC (0-5) /HPF Urine Microscopic WBC (0-5) /HPF Ur Epithelial Cells (None Seen) /HPF Urine Bacteria (None Seen) /HPF Urine HCG, Qual (NEGATIVE) ABO Group Rh Factor Antibody Screen (NEGATIVE) Micro Results-Entire Visit: Microbiology 03/10/23 09:40 Urine Culture - Preliminary Catherized NO GROWTH TO DATE - Procedures and Test Procedures and Tests throughout Hospitalization: Therapy Orders & Screens 03/10/23 13:11 Incentive Spirometry TID Comment: Diagnosis: severe dysmenorhea, menorrhagia,failed ablation 03/10/23 15:35 Oxygen NASAL CANNULA 2 lpm Comment: Diagnosis: severe dysmenorhea, menorrhagia,failed ablation Discharge Exam Wound Assessment: Skin/Wound Assessment Wound/Incision Assessment Start: 03/10/23 19:42 Text: Status: Active Freq: Q4H Protocol: Document 03/11/23 03:34 (Rec: 03/11/23 03:35 [id number]) Wound/Incision Assessment Lower Abdomen Wound Assessment Shift Assessment Wound Type Incision Drainage Amount None Drainage Odor None/Absent General Appearance Well Approximated Comment wound open to air. Wound Photo Photo Taken No Final Diagnosis/Problem List - Final Discharge Diagnosis/Problem (1) S/P abdominal supracervical subtotal hysterectomy Current Visit: Yes Status: Acute Code(s): Z90.711 - ACQUIRED ABSENCE OF UTERUS WITH REMAINING CERVICAL STUMP (2) S/P ovarian cystectomy Current Visit: Yes Status: Acute Code(s): Z98.890 - OTHER SPECIFIED POSTPROCEDURAL STATES; Z87.42 - PERSONAL HISTORY OF OTH DISEASES OF THE FEMALE GENITAL TRACT (3) Status post bilateral salpingectomy Current Visit: Yes Status: Acute Code(s): Z90.79 - ACQUIRED ABSENCE OF OTHER GENITAL ORGAN(S) - Discharge Disposition: Home, Self-Care Condition: Stable Prescriptions: New clindamycin HCL [Clindamycin HCl] 300 mg PO BID #6 cap Oxycodone HCl/Acetaminophen [Percocet 5-325 mg Tablet] 1 each PO Q6H PRN PRN #26 tablet MDD 4 PRN Reason: Moderate To Severe Pain clindamycin HCL [Clindamycin HCl] 300 mg PO BID 2 Days #4 cap No Action Topiramate 100 mg [Topamax 100 MG] 300 mg PO HS Divalproex Sodium [Depakote] 1,500 mg PO HS Omeprazole 40 mg PO DAILY Lamotrigine [Lamictal ([place])] 100 mg PO HS Loratadine 10 mg [Claritin 10 mg] 10 mg PO HS Follow up with: TORI SOUTH [Primary Care Provider] - 03/16/23 (no heavy lifting no intercourse should fu in office next thursday no driving for a week) SIDNEY BANERJEE DO [ACTIVE STAFF] - 03/16/23 (no heavy lifting may not drive for 7 days no intercourse keep incision clean and dry)
--- NOTE | 2023-03-11 08:49 | OP ---
SURGERY DATE/TIME: 03/10/2023 0915 PREOPERATIVE DIAGNOSIS: Severe dysmenorrhea and menorrhagia with failed ablation. POSTOPERATIVE DIAGNOSES: 1) Severe dysmenorrhea and menorrhagia with failed ablation. 2) Left ovarian hemorrhagic cyst endometriosis on left ovary. PROCEDURES: 1) Laparotomy supracervical hysterectomy. 2) Bilateral salpingectomy. 3) Left ovarian cystectomy. SURGEON: Neel Mojica D.O. MATERIAL FLOW ANALYST: Lizzy Armando surgical instrument maker. ANESTHESIA: General. ESTIMATED BLOOD LOSS: 55 cc. COMPLICATIONS: None. INDICATIONS: The risks, benefits, indications and alternatives of the procedure were reviewed with the patient prior to the procedure. The patient understood the risk of infection, bleeding, bowel injury, bladder injury, ureteral injury, pelvic infection and thromboembolic disorder associated with this surgery and desires to have this surgery as a possible means to alleviate her current medical condition. DESCRIPTION OF PROCEDURE AND FINDINGS: At this point the patient is taken to the operating room placed in the supine position, given general anesthesia, prepped and draped in the usual sterile fashion. A Pfannenstiel skin incision was made approximately 2 cm above the symphysis pubis and extended sharply through the rectus fascia. The fascia was then incised bilaterally with curved Kelley scissors and the muscles of the anterior abdominal wall were in the midline by sharp and blunt dissection. The peritoneum was then grasped between two pickups elevated and entered sharply with Metzenbaum scissors. The pelvis is then examined and noted to have an approximately 12 week size uterus. At this point an O'Cullen-O'Pickens retractor was placed into the incision and the bowel packed away with moist laparotomy sponges. A tenaculum is placed on the fundus of the uterus to elevate the uterus. From this point the LigaSure was used and was used to clamp over the left utero-ovarian ligament where it was clamped, coagulated and cut and taken down to the round ligament towards the uterine vasculature where it was skeletonized and bladder flap developed on its side. The same procedure was performed on the right side where the right utero-ovarian ligament clamped, coagulated and cut and taken down to the round ligament towards the uterine vasculature where it too was skeletonized on its side. From this point again a bladder flap developed on its side. From this point on the left side, the LigaSure was used and placed on the uterine vasculature where it was clamped, coagulated and cut on two contiguous regions and hemostasis was obtained. The same procedure was performed on the right side where the uterine vasculature was clamped, coagulated and cut and again hemostasis was assured. At this point the uterus is elevated and the bipolar instrument head turning machine operator was used to amputate the uterus from its cervical stump and was done so without complications. The cervical stump was closed with continuous stitch of 0 Vicryl suture and hemostasis was assured. At this point, the left fallopian tube was elevated and the LigaSure was placed on the mesosalpinx where it was clamped, coagulated and cut and the tube was removed without complication. The same procedure was performed on the right side where the LigaSure was placed on the mesosalpinx on the right side where it was clamped, coagulated and cut removing the right tube as well. The patient was noted to have endometriotic implants located on the left ovary with a cystic region noted. The LigaSure was placed on the cystic region where it was clamped, coagulated and cut and the cystic region was removed along with the LigaSure and the bipolar instrument was used to coagulate any remaining endometriotic implants that appeared on the left ovary. The cyst appeared to be approximately 2 x 2 cm in dimension prior to removal. From this point, the pelvis is then irrigated copiously with warm normal saline. All operative sponges and instruments were removed from the abdomen. At this point the muscles in the peritoneum were closed with 2-0 chromic suture and the fascia was reapproximated with 0 Vicryl suture. Hemostasis was assured. The subcutaneous layer was closed with 3-0 Vicryl suture. The skin was closed with absorbable clovis called INSORB. Sponge, lap, needle and instruments counts were correct x2. The patient was then taken to the recovery room in stable condition.
[2023-03-11] MEDS ORDERED: ENOXAPARIN SODIUM SQ SCH (09:00)
[2023-03-11] MEDS: Docusate Sodium 100 MG PO SCH (09:47)
[2023-03-11] MEDS ORDERED: Protonix 40MG Tablet PO SCH (10:00)
[2023-03-11] MEDS ORDERED: NON-FORMULARY ITEM (Omeprazole [Omeprazole] 40 MG Capsule.Dr) PO SCH (10:00)
[2023-03-11] MEDS ORDERED: HOLD NARCOTIC ANALGESICS AND SEDATIVES X24 HR MC SCH (10:00)
[2023-03-11 11:24] VITALS: PULSE 88; O2SAT 93
[2023-03-11 11:36] VITALS: BP 102/70
== END 2023-03-11 12:43 | disposition home or self-care (01) ==
LOC: MED SURG 07:04 → EDSTATUS 13:37
PROVIDERS: ADMIT Obstetrics & Gynecology; ATTEND Obstetrics & Gynecology
DX: N94.6 Dysmenorrhea, unspecified (principal); N92.0 Excessive and frequent menstruation with regular cycle; N83.202 Unspecified ovarian cyst, left side; N80.102 Endometriosis of left ovary, unspecified depth; Z20.828 Contact with and (suspected) exposure to other viral communicable diseases
CPT/HCPCS: 36415; 80053; 81001; 81025; 85025; 85027; 86850; 86900; 86901; 87086; 94760; 94762; J1100; J1200; J1650; J1885; J2250; J2274; J2405; J2704; J3010; A9270-GY